=== PATIENT | male | born 1990 | race Caucasian/White ===

== ENCOUNTER 2017-05-14 14:36 | Observation (INO) | payer BC ==
[2017-05-14] MEDS ORDERED: Lactated Ringers 1,000 ML IV ONE ×2 (14:38→16:19)
[2017-05-14 15:40] LABS: CHLORIDE,CL 100 mmol/L (98-107); SODIUM,NA 136 mmol/L (136-145)
[2017-05-14] MEDS ORDERED: Morphine 10 MG/ML Syringe IVPUSH ONE (15:42)
[2017-05-14] MEDS ORDERED: Acetaminophen 325 MG Tab PO ONE (15:43)
[2017-05-14] MEDS ORDERED: Ondansetron 4 MG/2 ML SDV IVPUSH ONE (15:43)
[2017-05-14] MEDS ORDERED: Ketorolac 30 MG/ML SDV IVPUSH ONE (15:43)
--- NOTE | 2017-05-14 15:51 | EDM.PDOC ---
ED HPI GENERAL MEDICAL PROBLEM - General Chief Complaint: Respiratory Problem Stated Complaint: fever, cough Time Seen by Provider: 05/14/17 15:12 Source of Information: Reports: Patient, Family History Limitations: Reports: No Limitations - History of Present Illness INITIAL COMMENTS - FREE TEXT/NARRATIVE: Patient comes to ER accompanied by after being ill since , 2 days ago. Has had bad headache, all-over body aches, low back pain. Daily fevers up to around 102. Additional positives include sore throat, moderate non- productive cough, ear pain. First day of illness included nausea and vomiting for half of the day. That resolved. No bowel changes. Decreased PO intake since becoming sick. Has had OTC NSAIDS. No one around him ill other than one person that missed work for a few days due to not feeling well. feels fine. Denies chronic health issues other than seasonal allergies. Had multiple ear infections as a kid. Non-smoker. Decided to come to ER to be checked as he also developed chest pain today, more so on left anterior chest than right. No change in pain with PO intake/moving/ breathing. Pain is relatively steady. 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 Headache Pain Score (Numeric/FACES): 8 - Related Data Allergies Allergy/AdvReac Type Severity Reaction Status Date / Time cefixime [From Suprax] Allergy Hives Verified 05/14/17 15:37 Home Meds: Home Meds Ibuprofen [Advil] 600 mg PO Q6H PRN 05/14/17 [History] Past Medical History HEENT History: Reports: Allergic Rhinitis, Otitis Media Cardiovascular History: Reports: None Respiratory History: Reports: None Gastrointestinal History: Reports: None Genitourinary History: Reports: None Musculoskeletal History: Reports: None Neurological History: Reports: Concussion Psychiatric History: Reports: None Endocrine/Metabolic History: Reports: None Hematologic History: Reports: None Oncologic (Cancer) History: Reports: None Dermatologic History: Reports: None - Infectious Disease History Infectious Disease History: Reports: C-Difficile, Chicken Pox, Influenza - Past Surgical History HEENT Surgical History: Reports: Adenoidectomy, Oral Surgery, Tonsillectomy Cardiovascular Surgical History: Reports: None Respiratory Surgical History: Reports: None GI Surgical History: Reports: None Social & Family History - Family History Family Medical History: Noncontributory Oncologic: Reports: Prostate, Other (See Below) Other Oncologic Family History: father with prostate cancer - Tobacco Use Smoking Status *Q: Never Smoker ED ROS GENERAL - Review of Systems Review Of Systems: See Below Constitutional: Reports: Fever, Chills, Malaise, Weakness, Fatigue, Diaphoresis , Decreased Appetite HEENT: Reports: Ear Pain, Rhinitis, Throat Pain. Denies: Ear Discharge, Eye Discharge, Eye Pain, Sinus Problem, Throat Swelling, Vertigo, Vision Change Respiratory: Reports: Cough. Denies: Shortness of Breath, Wheezing, Pleuritic Chest Pain, Sputum, Hemoptysis Cardiovascular: Reports: Chest Pain. Denies: Dyspnea on Exertion, Edema, Palpitations, Syncope GI/Abdominal: Reports: Nausea, Vomiting. Denies: Abdominal Pain, Constipation, Diarrhea, Melena : Reports: Other (decreased urination frequency) Musculoskeletal: Reports: Back Pain, Muscle Pain (generalized aches). Denies: Muscle Stiffness Skin: Reports: No Symptoms Neurological: Reports: Headache. Denies: Confusion, Dizziness, Numbness, Paresthesia, Seizure, Syncope, Trouble Speaking, Gait Disturbance Psychiatric: Reports: No Symptoms Hematologic/Lymphatic: Reports: No Symptoms Immunologic: Reports: Environmental Allergy ED EXAM, GENERAL - Physical Exam Exam: See Below Exam Limited By: No Limitations General Appearance: Alert, WD/WN, No Apparent Distress, Other (appears fatigued) Eye Exam: Bilateral Eye: EOMI, PERRL Ears: Normal External Exam, Normal Canal, Hearing Grossly Normal, Normal TMs Nose: Normal Inspection. No: Nasal Swelling, Nasal Drainage Throat/Mouth: Normal Inspection, Normal Lips, Normal Teeth, Normal Gums, Normal Oropharynx, Normal Voice, No Airway Compromise Head: Atraumatic, Normocephalic Neck: Normal Inspection, Supple, Non-Tender, Full Range of Motion. No: Lymphadenopathy (L), Lymphadenopathy (R) Respiratory/Chest: No Respiratory Distress, No Accessory Muscle Use, Chest Non- Tender, Rales (very faint rales left lung posteriorly). No: Crackles, Rhonchi, Wheezing, Stridor, Accessory Muscle Use, Retractions Cardiovascular: Normal Peripheral Pulses, Regular Rate, Rhythm, No Edema, No Murmur Peripheral Pulses: 2+: Radial (L), Radial (R), Dorsalis Pedis (L), Dorsalis Pedis (R) GI/Abdominal: Normal Bowel Sounds, Soft, Non-Tender, No Distention, No Abnormal Bruit, No Mass (Male) Exam: Deferred Rectal (Males) Exam: Deferred Back Exam: Normal Inspection. No: CVA Tenderness (L), CVA Tenderness (R), Muscle Spasm, Paraspinal Tenderness, Vertebral Tenderness Extremities: Normal Range of Motion, Non-Tender, No Pedal Edema, Slow Capillary Refill. No: Tiffani's Sign Neurological: Alert, Oriented, Normal Cognition, Normal Gait, No Motor/Sensory Deficits Psychiatric: Normal Affect, Normal Mood Skin Exam: Warm, Dry, Intact, Other (patient noted to be sweating on back where he made contact with bed. ) EKG INTERPRETATION EKG Date: 05/14/17 Time: 15:27 Rhythm: NSR Rate (Beats/Min): 92 [place]: Normal P-Wave: Present QRS: Normal ST-T: Other (No acute ST changes suggesting ischemia overall, however morphology of V2 shows very slight change in beginning of T wave.) QT: Normal Comparison: NA - No Prior EKG Course - Vital Signs Last Recorded V/S: Last Vital Signs Temp 37.9 C 05/14/17 14:38 Pulse 94 05/14/17 15:21 Resp 20 05/14/17 15:21 BP 154/83 H 05/14/17 15:21 Pulse Ox 99 05/14/17 15:21 - Orders/Labs/Meds Orders: Active Orders 24 hr Category Date Time Status EKG Documentation Completion [RC] ASDIRECTED Care 05/14/17 15:23 Active Chest 2V [CR] Stat Exams 05/14/17 14:38 Taken CULTURE BLOOD [BC] Stat Lab 05/14/17 15:04 Ordered CULTURE BLOOD [BC] Stat Lab 05/14/17 15:04 Ordered CULTURE STREP A CONFIRMATION [RM] Stat Lab 05/14/17 14:26 Results STREP SCRN A RAPID W CULT CONF [RM] Stat Lab 05/14/17 14:26 Results UA W/MICROSCOPIC [URIN] Stat Lab 05/14/17 14:38 Ordered Sodium Chloride 0.9% [Saline Flush] Med 05/14/17 15:39 Active 10 ml FLUSH ASDIRECTED PRN Blood Culture x2 Reflex Set [OM.PC] Stat Oth 05/14/17 15:04 Ordered Medication Orders Acetaminophen (Tylenol Extra Strength) 500 mg PO Q6H PRN PRN Reason: Pain Lactated Ringer's (Ringers, Lactated) 1,000 mls @ 250 mls/hr IV .BOLUS ONE Stop: 05/14/17 20:18 Sodium Chloride (Normal Saline) 1,000 mls @ 150 mls/hr IV ASDIRECTED FEDE Ketorolac Tromethamine (Toradol) 30 mg IVPUSH Q8H PRN PRN Reason: Pain Stop: 05/19/17 16:22 Morphine Sulfate (Morphine) 5 mg IVPUSH Q4H PRN PRN Reason: Pain (moderate 4-6) Ondansetron HCl (Zofran) 4 mg IVPUSH Q6H PRN PRN Reason: Nausea/Vomiting Sodium Chloride (Saline Flush) 10 ml FLUSH ASDIRECTED PRN PRN Reason: Keep Vein Open Last Admin: 05/14/17 16:03 Dose: 10 ml Admin: 05/14/17 15:57 Dose: 10 ml Labs: Laboratory Tests 05/14/17 05/14/17 05/14/17 Range/Units 14:50 14:50 14:50 WBC 6.8 (4.0-10.2) K/uL RBC 5.20 (4.33-5.41) M/uL Hgb 15.2 (13.1-16.8) g/dL Hct 44.3 (39.0-49.0) % MCV 85.2 (84.0-98.0) fL MCH 29.2 (28.2-33.3) pg MCHC 34.3 (31.7-36.0) g/dL RDW 13.1 (11.2-14.1) % Plt Count 178 (150-350) K/uL Neut % (Auto) 66.8 (45.0-80.0) % Lymph % (Auto) 14.8 (10.0-50.0) % [place] % (Auto) 18.2 H (2.0-14.0) % Eos % (Auto) 0.1 (0.0-5.0) % Baso % (Auto) 0.1 (0.0-2.0) % Neut # (Auto) 4.51 (1.40-7.00) K/uL Lymph # (Auto) 1.00 (0.50-3.50) K/uL [place] # (Auto) 1.23 H (0.00-1.00) K/uL Eos # (Auto) 0.01 (0.00-0.50) K/uL Baso # (Auto) 0.01 (0.00-0.20) K/uL Sodium 136 (136-145) mmol/L Potassium 3.7 (3.5-5.1) mmol/L Chloride 100 (98-107) mmol/L Carbon Dioxide 25.3 (21.0-32.0) mmol/L BUN 9 (7-18) mg/dL Creatinine 1.02 (0.51-1.17) mg/dL Est Cr Clr Drug Dosing 127.85 mL/min Estimated GFR (MDRD) > 60 mL/min Glucose 90 (74-106) mg/dL Lactic Acid 0.6 (0.4-2.0) mmol/L Calcium 8.8 (8.5-10.1) mg/dL Total Bilirubin 0.5 (0.2-1.0) mg/dL AST 23 (15-37) U/L ALT 29 (12-78) U/L Alkaline Phosphatase 72 (46-116) IU/L Troponin I (0.000-0.056) ng/mL Total Protein 8.3 H (6.4-8.2) g/dL Albumin 4.4 (3.4-5.0) g/dL 05/14/17 Range/Units 14:50 WBC (4.0-10.2) K/uL RBC (4.33-5.41) M/uL Hgb (13.1-16.8) g/dL Hct (39.0-49.0) % MCV (84.0-98.0) fL MCH (28.2-33.3) pg MCHC (31.7-36.0) g/dL RDW (11.2-14.1) % Plt Count (150-350) K/uL Neut % (Auto) (45.0-80.0) % Lymph % (Auto) (10.0-50.0) % [place] % (Auto) (2.0-14.0) % Eos % (Auto) (0.0-5.0) % Baso % (Auto) (0.0-2.0) % Neut # (Auto) (1.40-7.00) K/uL Lymph # (Auto) (0.50-3.50) K/uL [place] # (Auto) (0.00-1.00) K/uL Eos # (Auto) (0.00-0.50) K/uL Baso # (Auto) (0.00-0.20) K/uL Sodium (136-145) mmol/L Potassium (3.5-5.1) mmol/L Chloride (98-107) mmol/L Carbon Dioxide (21.0-32.0) mmol/L BUN (7-18) mg/dL Creatinine (0.51-1.17) mg/dL Est Cr Clr Drug Dosing mL/min Estimated GFR (MDRD) mL/min Glucose (74-106) mg/dL Lactic Acid (0.4-2.0) mmol/L Calcium (8.5-10.1) mg/dL Total Bilirubin (0.2-1.0) mg/dL AST (15-37) U/L ALT (12-78) U/L Alkaline Phosphatase (46-116) IU/L Troponin I 0.000 (0.000-0.056) ng/mL Total Protein (6.4-8.2) g/dL Albumin (3.4-5.0) g/dL Meds: Medications Generic Name Dose Route Start Last Admin Trade Name Freq PRN Reason Stop Dose Admin Acetaminophen 500 mg 05/14/17 16:24 Tylenol Extra Strength PO Q6H PRN Pain Lactated Ringer's 1,000 mls @ 250 mls/hr 05/14/17 16:19 Ringers, Lactated IV 05/14/17 20:18 .BOLUS ONE Sodium Chloride 1,000 mls @ 150 mls/hr 05/14/17 20:00 Normal Saline IV ASDIRECTED FEDE Ketorolac Tromethamine 30 mg 05/14/17 16:20 Toradol IVPUSH 05/19/17 16:22 Q8H PRN Pain Morphine Sulfate 5 mg 05/14/17 16:20 Morphine IVPUSH Q4H PRN Pain (moderate 4-6) Ondansetron HCl 4 mg 05/14/17 16:20 Zofran IVPUSH Q6H PRN Nausea/Vomiting Sodium Chloride 10 ml 05/14/17 15:39 05/14/17 16:03 Saline Flush FLUSH 10 ml ASDIRECTED PRN Administration Keep Vein Open Discontinued Medications Generic Name Dose Route Start Last Admin Trade Name John PRN Reason Stop Dose Admin Acetaminophen 650 mg 05/14/17 15:43 05/14/17 15:55 Tylenol PO 05/14/17 15:44 650 mg NOW ONE Administration Lactated Ringer's 1,000 mls @ 999 mls/hr 05/14/17 14:38 05/14/17 15:00 Ringers, Lactated IV 05/14/17 15:38 999 mls/hr ONETIME ONE Administration Ketorolac Tromethamine 30 mg 05/14/17 15:43 05/14/17 15:54 Toradol IVPUSH 05/14/17 15:44 30 mg ONETIME ONE Administration Morphine Sulfate 5 mg 05/14/17 15:42 05/14/17 15:56 Morphine IVPUSH 05/14/17 15:43 5 mg ONETIME ONE Administration Ondansetron HCl 4 mg 05/14/17 15:43 05/14/17 15:55 Zofran IVPUSH 05/14/17 15:44 4 mg ONETIME ONE Administration - Radiology Interpretation Free Text/Narrative:: Chest xray did not show obvious localized infiltrate/pneumonia/pneumothorax - Re-Assessments/Exams Free Text/Narrative Re-Assessment/Exam: 05/14/17 16:07 IV fluid bolus given to help treat dehydration. Patient positive for Influenza A. Strep negative. CBC/Chem/Trop/lactic acid normal. Blood culture pending. Patient admitted observation for IV fluids and pain management. BP elevated in ER which patient says is not normal for him. He attributed it to his headache. MS and Toradol given. Suspect chest pain is related to the influenza infection. Again patient is having a good amount of discomfort from headache and generalized body/back aches. Departure - Departure Time of Disposition: 16:26 Disposition: Refer to Observation Condition: Fair Clinical Impression: Influenza A, Dehydration - Discharge Information - Problem List & Annotations (1) Influenza A SNOMED Code(s): 519267922 Code(s): J10.1 - FLU DUE TO OTH IDENT INFLUENZA VIRUS W OTH RESP MANIFEST Status: Acute Priority: High Current Visit: Yes Onset Date: 05/12/17 Annotation/Comment:: Influenza infection that was noted to start three days ago. Antiviral not indicated due to illness being present for three days and patient being otherwise healthy. Will give IV fluid support as well as try to make patient feel more comfortable pain-funez (2) Dehydration SNOMED Code(s): 45173500 Code(s): E86.0 - DEHYDRATION Status: Acute Priority: High Current Visit : Yes Onset Date: ~05/13/17 (3) Headache due to viral infection SNOMED Code(s): 085765245 Code(s): B34.9 - VIRAL INFECTION, UNSPECIFIED; R51 - HEADACHE Status: Acute Priority: High Current Visit: Yes Onset Date: 05/12/17 - Problem List Review Problem List Initiated/Reviewed/Updated: Yes - My Orders Last 24 Hours: My Active Orders 05/14/17 14:26 CULTURE STREP A CONFIRMATION [RM] Stat STREP SCRN A RAPID W CULT CONF [RM] Stat 05/14/17 14:38 Chest 2V [CR] Stat UA W/MICROSCOPIC [URIN] Stat 05/14/17 15:04 CULTURE BLOOD [BC] Stat CULTURE BLOOD [BC] Stat Blood Culture x2 Reflex Set [OM.PC] Stat 05/14/17 15:23 EKG Documentation Completion [RC] ASDIRECTED 05/14/17 15:39 Sodium Chloride 0.9% [Saline Flush] 10 ml FLUSH ASDIRECTED PRN - Assessment/Plan Admission H&P: Please use this note as an admission H&P Last 24 Hours: My Active Orders 05/14/17 14:26 CULTURE STREP A CONFIRMATION [RM] Stat STREP SCRN A RAPID W CULT CONF [RM] Stat 05/14/17 14:38 Chest 2V [CR] Stat UA W/MICROSCOPIC [URIN] Stat 05/14/17 15:04 CULTURE BLOOD [BC] Stat CULTURE BLOOD [BC] Stat Blood Culture x2 Reflex Set [OM.PC] Stat 05/14/17 15:23 EKG Documentation Completion [RC] ASDIRECTED 05/14/17 15:39 Sodium Chloride 0.9% [Saline Flush] 10 ml FLUSH ASDIRECTED PRN Assessment:: Influenza A infection with dehydration and significant discomfort secondary to headache/body aches. Plan: Admit for IV fluids and pain management. Anticipate that patient will likely go home tomorrow depending on response to treatment plan.
[2017-05-14] MEDS: Sodium Chloride 0.9% 10 ML Syringe FLUSH PRN ×3 (15:57→18:30)
[2017-05-14] MEDS ORDERED: Acetaminophen 500 MG Tab PO PRN (16:24)
[2017-05-14] MEDS ORDERED: Acetaminophen/oxyCODONE 325-5 MG Tab PO PRN (18:22)
[2017-05-14] MEDS: Morphine 10 MG/ML Syringe IVPUSH PRN (18:29)
[2017-05-14] MEDS: Sodium Chloride 0.9% 1,000 ML IV SCH (20:14)
[2017-05-15] MEDS: Morphine 10 MG/ML Syringe IVPUSH PRN (01:18)
[2017-05-15] MEDS: Sodium Chloride 0.9% 10 ML Syringe FLUSH PRN ×4 (01:18→17:21)
[2017-05-15] MEDS: Ketorolac 30 MG/ML SDV IVPUSH PRN ×2 (03:12→17:20)
[2017-05-15] MEDS: Sodium Chloride 0.9% 1,000 ML IV SCH ×3 (03:13→17:21)
[2017-05-15] MEDS: Acetaminophen/oxyCODONE 325-5 MG Tab PO PRN ×2 (05:36→11:24)
[2017-05-15] MEDS: Ondansetron 4 MG/2 ML SDV IVPUSH PRN ×2 (09:00→17:20)
--- NOTE | 2017-05-15 11:31 | PCM.PN ---
- General Info Date of Service: 05/15/17 Admission Dx/Problem (Free Text): Influenza, dehydration, headache Functional Status: Reports: Pain Controlled (Not pain-free but significant improvement with current medication regimen. 07/05) - Review of Systems General: Reports: Weakness, Fatigue, Malaise, Chills. Denies: Fever HEENT: Reports: Headaches, Sore Throat, Rhinitis Pulmonary: Reports: Cough, Sputum. Denies: Shortness of Breath, Pleuritic Chest Pain, Hemoptysis, Wheezing Cardiovascular: Denies: Palpitations, Dyspnea on Exertion, Orthopnea, PND, Edema , Lightheadedness Gastrointestinal: Reports: Nausea. Denies: Abdominal Pain, Decreased Appetite, Diarrhea, Vomiting Genitourinary: Reports: No Symptoms Musculoskeletal: Reports: Back Pain, Other (generalized aches all over body) Skin: Reports: No Symptoms Neurological: Reports: Headache. Denies: Confusion, Dizziness, Numbness, Paresthesia, Syncope, Trouble Speaking, Difficulty Walking, Change in Speech, Gait Disturbance Psychiatric: Reports: No Symptoms - Patient Data Vitals - Most Recent: Last Vital Signs Temp 37.2 C 05/15/17 11:23 Pulse 74 05/15/17 08:00 Resp 15 05/15/17 08:00 BP 150/72 H 05/15/17 08:00 Pulse Ox 100 05/15/17 08:00 Weight - Most Recent: 88.768 kg I&O - Last 24 Hours: Intake & Output 05/14/17 05/15/17 05/15/17 22:59 06:59 14:59 Intake Total 985 2875 1360 Output Total 1600 1000 Balance 985 1275 360 Lab Results Last 24 Hours: Laboratory Results - last 24 hr 05/14/17 Range/Units 19:30 Specimen Type Urinvoid Urine Color Yellow Urine Appearance Clear Urine pH 6.0 (5.0-9.0) Ur Specific [place] 1.015 (1.005-1.030) Urine Protein Negative (NEGATIVE) mg/dL Urine Glucose (UA) Negative (NEGATIVE) mg/dL Urine Ketones 15 H (NEGATIVE) mg/dL Urine Occult Blood Negative (NEGATIVE) Urine Nitrite Negative (NEGATIVE) Urine Bilirubin Negative (NEGATIVE) Urine Urobilinogen 0.2 (0.2-1.0) E.U./dL Ur Leukocyte Esterase Negative (NEGATIVE) Urine RBC Not seen /HPF Urine WBC 0-5 /HPF Ur Epithelial Cells Rare /LPF Urine Bacteria Not seen (NONE TO FEW) /HPF Urine Mucus Few H (NEGATIVE) /LPF Med Orders - Current: Current Medications Acetaminophen (Tylenol Extra Strength) 500 mg PO Q6H PRN PRN Reason: Pain Last Admin: 05/15/17 01:17 Dose: 500 mg Sodium Chloride (Normal Saline) 1,000 mls @ 150 mls/hr IV ASDIRECTED FEDE Last Admin: 05/15/17 09:03 Dose: 150 mls/hr Ketorolac Tromethamine (Toradol) 30 mg IVPUSH Q8H PRN PRN Reason: Pain Stop: 05/19/17 16:22 Last Admin: 05/15/17 03:12 Dose: 30 mg Morphine Sulfate (Morphine) 5 mg IVPUSH Q4H PRN PRN Reason: Pain (moderate 4-6) Last Admin: 05/15/17 01:18 Dose: 5 mg Ondansetron HCl (Zofran) 4 mg IVPUSH Q6H PRN PRN Reason: Nausea/Vomiting Last Admin: 05/15/17 09:00 Dose: 4 mg Oxycodone/Acetaminophen (Percocet 325-5 Mg) 1 tab PO Q6H PRN PRN Reason: Pain (moderate 4-6) Last Admin: 05/14/17 20:12 Dose: 1 tab Oxycodone/Acetaminophen (Percocet 325-5 Mg) 2 tab PO Q6H PRN PRN Reason: Pain (severe 7-10) Last Admin: 05/15/17 11:24 Dose: 2 tab Sodium Chloride (Saline Flush) 10 ml FLUSH ASDIRECTED PRN PRN Reason: Keep Vein Open Last Admin: 05/15/17 09:04 Dose: 10 ml Discontinued Medications Acetaminophen (Tylenol) 650 mg PO NOW ONE Stop: 05/14/17 15:44 Last Admin: 05/14/17 15:55 Dose: 650 mg Lactated Ringer's (Ringers, Lactated) 1,000 mls @ 999 mls/hr IV ONETIME ONE Stop: 05/14/17 15:38 Last Admin: 05/14/17 15:00 Dose: 999 mls/hr Lactated Ringer's (Ringers, Lactated) 1,000 mls @ 250 mls/hr IV .BOLUS ONE Stop: 05/14/17 20:18 Last Admin: 05/14/17 16:30 Dose: 250 mls/hr Ketorolac Tromethamine (Toradol) 30 mg IVPUSH ONETIME ONE Stop: 05/14/17 15:44 Last Admin: 05/14/17 15:54 Dose: 30 mg Morphine Sulfate (Morphine) 5 mg IVPUSH ONETIME ONE Stop: 05/14/17 15:43 Last Admin: 05/14/17 15:56 Dose: 5 mg Ondansetron HCl (Zofran) 4 mg IVPUSH ONETIME ONE Stop: 05/14/17 15:44 Last Admin: 05/14/17 15:55 Dose: 4 mg - Exam General: Alert, Oriented, Cooperative, Other (appears very fatigued) HEENT: Pupils Equal, Pupils Reactive, EOMI, Mucous Membr. Moist/[place] Neck: Supple Lungs: Clear to Auscultation, Normal Respiratory Effort Cardiovascular: Regular Rate, Regular Rhythm GI/Abdominal Exam: Normal Bowel Sounds, Soft, Non-Tender, No Distention (Male) Exam: Deferred Back Exam: Normal Inspection Extremities: Normal Inspection, Normal Range of Motion, No Pedal Edema, Normal Capillary Refill Peripheral Pulses: 2+: Radial (L), Radial (R) Skin: Warm, Dry, Intact Neurological: No New Focal Deficit Psy/Mental Status: Alert, Normal Affect, Normal Mood - Problem List & Annotations (1) Influenza A SNOMED Code(s): 207786212 Code(s): J10.1 - FLU DUE TO OTH IDENT INFLUENZA VIRUS W OTH RESP MANIFEST Status: Acute Priority: High Current Visit: Yes Onset Date: 05/12/17 Annotation/Comment:: Continue supportive measures as well as IV fluids/pain management (2) Dehydration SNOMED Code(s): 24066327 Code(s): E86.0 - DEHYDRATION Status: Acute Priority: High Current Visit : Yes Onset Date: ~05/13/17 (3) Headache due to viral infection SNOMED Code(s): 760425519 Code(s): B34.9 - VIRAL INFECTION, UNSPECIFIED; R51 - HEADACHE Status: Acute Priority: High Current Visit: Yes Onset Date: 05/12/17 Annotation/ Comment:: Patient aware that we cannot likely get him completely pain-free as this is a virally induced headache. Has had good overall improvement of pain with best pain reduction from Percocet. (4) Hypertension SNOMED Code(s): 09612852 Code(s): I10 - ESSENTIAL (PRIMARY) HYPERTENSION Status: Acute Priority: Low Current Visit: Yes Qualifiers: Hypertension type: unspecified Qualified Code(s): I10 - Essential (primary ) hypertension Annotation/Comment:: Patient denies having issues with elevated BP when feeling well. Appears to have elevated BP that is associated with pain/discomfort. Readings improve when pain score is improved. - Problem List Review Problem List Initiated/Reviewed/Updated: Yes - My Orders Last 24 Hours: My Active Orders 05/14/17 16:16 Patient Status [ADT] Routine Ambulate [RC] ASDIRECTED Height and Weight [RC] .PRN May Shower [RC] ASDIRECTED Up ad [place] [RC] ASDIRECTED Vital Signs [RC] Q4HR DVT/VTE Prophylaxis Reflex [OM.PC] Routine Resuscitation Status Routine 05/14/17 16:18 Intake and Output [RC] QSHIFT Oxygen Therapy [RC] PRN Pulse Oximetry [RC] PRN 05/14/17 16:19 Antiembolic Devices [RC] 08,20 VTE/DVT Education [RC] PER UNIT ROUTINE 05/14/17 16:20 Ketorolac [Toradol] 30 mg IVPUSH Q8H PRN Morphine 5 mg IVPUSH Q4H PRN Ondansetron [Zofran] 4 mg IVPUSH Q6H PRN 05/14/17 16:24 Acetaminophen [Tylenol Extra Strength] 500 mg PO Q6H PRN 05/14/17 16:30 Isolation [COMM] Routine 05/14/17 18:22 Acetaminophen/oxyCODONE [Percocet 325-5 MG] 1 tab PO Q6H PRN 05/14/17 18:23 Acetaminophen/oxyCODONE [Percocet 325-5 MG] 2 tab PO Q6H PRN 05/14/17 20:00 Sodium Chloride 0.9% [Normal Saline] 1,000 ml IV ASDIRECTED 05/14/17 Dinner Regular Diet [DIET] - Assessment Assessment:: Influenza A infection with severe headache and dehydration. - Plan Plan:: Will continue current plan. Goal is to be able to discharge patient home tomorrow and have him continue on PRN oral medication for continued nausea and influenza-related discomfort.
[2017-05-15] MEDS ORDERED: Promethazine 25 MG/ML SDV IM PRN (18:19)
[2017-05-16] MEDS: Ketorolac 30 MG/ML SDV IVPUSH PRN (00:35)
[2017-05-16] MEDS: Ondansetron 4 MG/2 ML SDV IVPUSH PRN (00:35)
[2017-05-16] MEDS: Sodium Chloride 0.9% 1,000 ML IV SCH (00:38)
--- NOTE | 2017-05-16 09:20 | PCM.DCSUM1 ---
Discharge Summary - Hospital Course Brief History: Patient admitted for treatment of Influenza A - Discharge Data Discharge Date: 05/16/17 Discharge Disposition: Home, Self-Care 01 Condition: Good - Discharge Diagnosis/Problem(s) (1) Influenza A SNOMED Code(s): 414659609 ICD Code: J10.1 - FLU DUE TO OTH IDENT INFLUENZA VIRUS W OTH RESP MANIFEST Status: Acute Priority: High Current Visit: Yes Onset Date: 05/12/17 Problem Details: Improving. Continues to have baseline headache and intermittent nausea. Improving appetite (2) Dehydration SNOMED Code(s): 13772085 ICD Code: E86.0 - DEHYDRATION Status: Acute Priority: High Current Visit: Yes Onset Date: ~05/13/17 (3) Headache due to viral infection SNOMED Code(s): 094960912 ICD Code: B34.9 - VIRAL INFECTION, UNSPECIFIED; R51 - HEADACHE Status: Acute Priority: High Current Visit: Yes Onset Date: 05/12/17 Problem Details: Improving (4) Hypertension SNOMED Code(s): 29833583 ICD Code: I10 - ESSENTIAL (PRIMARY) HYPERTENSION Status: Acute Priority: Low Current Visit: Yes Problem Details: Patient denies having issues with elevated BP when feeling well. Appears to have elevated BP that is associated with pain/discomfort. Readings improve when pain score is improved. Qualifiers: Hypertension type: unspecified Qualified Code(s): I10 - Essential (primary ) hypertension - Patient Summary/Data Complications: None Hospital Course: Patient received IV fluids as well as pain management for generalized aches and headache associated with flu. Anti-nausea meds to treat nausea and emesis. - Patient Instructions Diet: Regular Diet as Tolerated Driving: Do Not Drive (if taking [place]) Showering/Bathing: May Shower Notify Provider of: Fever, Increased Pain, Nausea and/or Vomiting - Discharge Plan Prescriptions/Med Rec: Acetaminophen/oxyCODONE [Percocet 325-5 MG] 1 each PO ASDIRECTED PRN #15 tab PRN Reason: Pain Ondansetron [Zofran ODT] 4 mg PO Q6H PRN #10 tab.dis PRN Reason: Nausea Home Medications: Home Meds Ibuprofen [Advil] 600 mg PO Q6H PRN 05/14/17 [History] Acetaminophen/oxyCODONE [Percocet 325-5 MG] 1 each PO ASDIRECTED PRN #15 tab [Rx] Ondansetron [Zofran ODT] 4 mg PO Q6H PRN #10 tab.dis 05/16/17 [Rx] Patient Handouts: Ketorolac injection, Ondansetron injection, Influenza, Adult , Droplet Precautions, [id number], Morphine injection solution Forms: ED Department Discharge Referrals: Stella López [employer] [Primary Care Provider] - - Discharge Summary/Plan Comment DC Time >30 min.: No Discharge Summary/Plan Comment: Patient to go home. Advance activity as tolerated. Advance diet as tolerated. Follow up as needed. - General Info Date of Service: 05/16/17 Admission Dx/Problem (Free Text: Influenza, dehydration, headache Functional Status: Reports: Pain Controlled (improved but still present), Tolerating Diet, Ambulating, Urinating. Denies: New Symptoms Numeric/FACES Score: 3 - Review of Systems General: Reports: Fatigue (improving), Appetite (improving). Denies: Fever, Chills, Night Sweats HEENT: Reports: Headaches (improving), Sore Throat (improving). Denies: Ear Pain, Eye Pain, Rhinitis, Visual Changes Pulmonary: Reports: Cough (improving). Denies: Shortness of Breath, Pleuritic Chest Pain, Sputum, Hemoptysis, Wheezing Cardiovascular: Reports: No Symptoms Gastrointestinal: Reports: Nausea (intermittent, improving). Denies: Abdominal Pain, Diarrhea, Difficulty Swallowing, Vomiting Genitourinary: Reports: No Symptoms Musculoskeletal: Reports: Other (generalized muscle aches, improving) Skin: Reports: No Symptoms Neurological: Reports: Headache. Denies: Confusion, Dizziness, Numbness, Paresthesia, Trouble Speaking, Difficulty Walking, Weakness, Change in Speech, Gait Disturbance Psychiatric: Reports: No Symptoms - Patient Data Vitals - Most Recent: Last Vital Signs Temp 36.7 C 05/16/17 08:00 Pulse 84 05/16/17 08:00 Resp 15 05/16/17 08:00 BP 145/70 H 05/16/17 08:00 Pulse Ox 98 05/16/17 08:00 Weight - Most Recent: 88.768 kg I&O - Last 24 hours: Intake & Output 05/15/17 05/16/17 05/16/17 22:59 06:59 14:59 Intake Total 1646 2318 200 Output Total 1950 1000 Balance -304 1318 200 Lab Results - Last 24 hrs: Laboratory Results - last 24 hr 05/14/17 Range/Units 19:30 Specimen Type Urinvoid Urine Color Yellow Urine Appearance Clear Urine pH 6.0 (5.0-9.0) Ur Specific [place] 1.015 (1.005-1.030) Urine Protein Negative (NEGATIVE) mg/dL Urine Glucose (UA) Negative (NEGATIVE) mg/dL Urine Ketones 15 H (NEGATIVE) mg/dL Urine Occult Blood Negative (NEGATIVE) Urine Nitrite Negative (NEGATIVE) Urine Bilirubin Negative (NEGATIVE) Urine Urobilinogen 0.2 (0.2-1.0) E.U./dL Ur Leukocyte Esterase Negative (NEGATIVE) Urine RBC Not seen /HPF Urine WBC 0-5 /HPF Ur Epithelial Cells Rare /LPF Urine Bacteria Not seen (NONE TO FEW) /HPF Urine Mucus Few H (NEGATIVE) /LPF Med Orders - Current: Current Medications Acetaminophen (Tylenol Extra Strength) 500 mg PO Q6H PRN PRN Reason: Pain Last Admin: 05/15/17 01:17 Dose: 500 mg Sodium Chloride (Normal Saline) 1,000 mls @ 125 mls/hr IV ASDIRECTED [facility] Last Admin: 05/16/17 00:38 Dose: 125 mls/hr Ketorolac Tromethamine (Toradol) 30 mg IVPUSH Q8H PRN PRN Reason: Pain Stop: 05/19/17 16:22 Last Admin: 05/16/17 00:35 Dose: 30 mg Morphine Sulfate (Morphine) 5 mg IVPUSH Q4H PRN PRN Reason: Pain (moderate 4-6) Last Admin: 05/15/17 01:18 Dose: 5 mg Ondansetron HCl (Zofran) 4 mg IVPUSH Q6H PRN PRN Reason: Nausea/Vomiting Last Admin: 05/16/17 00:35 Dose: 4 mg Oxycodone/Acetaminophen (Percocet 325-5 Mg) 1 tab PO Q6H PRN PRN Reason: Pain (moderate 4-6) Last Admin: 05/14/17 20:12 Dose: 1 tab Oxycodone/Acetaminophen (Percocet 325-5 Mg) 2 tab PO Q6H PRN PRN Reason: Pain (severe 7-10) Last Admin: 05/15/17 11:24 Dose: 2 tab Promethazine HCl (Phenergan) 25 mg IM Q6H PRN PRN Reason: Nausea/Vomiting Last Admin: 05/15/17 18:34 Dose: 25 mg Sodium Chloride (Saline Flush) 10 ml FLUSH ASDIRECTED PRN PRN Reason: Keep Vein Open Last Admin: 05/15/17 17:21 Dose: 10 ml Discontinued Medications Acetaminophen (Tylenol) 650 mg PO NOW ONE Stop: 05/14/17 15:44 Last Admin: 05/14/17 15:55 Dose: 650 mg Lactated Ringer's (Ringers, Lactated) 1,000 mls @ 999 mls/hr IV ONETIME ONE Stop: 05/14/17 15:38 Last Admin: 05/14/17 15:00 Dose: 999 mls/hr Lactated Ringer's (Ringers, Lactated) 1,000 mls @ 250 mls/hr IV .BOLUS ONE Stop: 05/14/17 20:18 Last Admin: 05/14/17 16:30 Dose: 250 mls/hr Ketorolac Tromethamine (Toradol) 30 mg IVPUSH ONETIME ONE Stop: 05/14/17 15:44 Last Admin: 05/14/17 15:54 Dose: 30 mg Morphine Sulfate (Morphine) 5 mg IVPUSH ONETIME ONE Stop: 05/14/17 15:43 Last Admin: 05/14/17 15:56 Dose: 5 mg Ondansetron HCl (Zofran) 4 mg IVPUSH ONETIME ONE Stop: 05/14/17 15:44 Last Admin: 05/14/17 15:55 Dose: 4 mg - Exam General: Reports: Alert, Oriented, Cooperative, No Acute Distress HEENT: Reports: Pupils Equal, Pupils Reactive, EOMI, Mucous Membr. Moist/[place] Neck: Reports: Supple Lungs: Reports: Clear to Auscultation, Normal Respiratory Effort Cardiovascular: Reports: Regular Rate, Regular Rhythm GI/Abdominal Exam: Normal Bowel Sounds, Soft, Non-Tender, No Distention, No Abnormal Bruit (Male) Exam: Deferred Rectal (Males) Exam: Deferred Back Exam: Reports: Normal Inspection, Full Range of Motion. Denies: CVA Tenderness (L), CVA Tenderness (R), Muscle Spasm, Paraspinal Tenderness, Vertebral Tenderness Extremities: Normal Inspection, Normal Range of Motion, Non-Tender, No Pedal Edema, Normal Capillary Refill Skin: Reports: Warm, Dry, Intact Neurological: Reports: No New Focal Deficit Psy/Mental Status: Reports: Alert, Normal Affect, Normal Mood *Q Meaningful Use (DIS) - VTE *Q VTE Criteria *Q: - Stroke *Q Stroke Criteria *Q: - AMI *Q AMI Criteria *Q:
== END 2017-05-16 10:20 | disposition home or self-care (01) ==
LOC: LL.ED 14:36 → LL.MS 15:45
PROVIDERS: ADMIT Emergency Medicine; ATTEND Emergency Medicine
DX: J10.1 Influenza due to other identified influenza virus with other respiratory manifestations (principal); E86.0 Dehydration; B34.9 Viral infection, unspecified; I10 Essential (primary) hypertension; J30.9 Allergic rhinitis, unspecified; Z88.1 Allergy status to other antibiotic agents; Z90.89 Acquired absence of other organs
CPT/HCPCS: 36415; 71046; 80053; 81001; 83605; 84484; 85025; 87040; 87081; 87430; 87804; 93005; 96361; 96372; 96374; 96375; 96376; 99285; A9270; G0378; J1885; J2270; J2405; J2550; J7030; J7050; J7120

== ENCOUNTER 2018-04-14 20:34 | Observation (INO) | payer BC ==
--- NOTE | 2018-04-14 20:57 | EDM.PDOC ---
ED HPI GENERAL MEDICAL PROBLEM - General Chief Complaint: Fever Stated Complaint: fever,chills,body aches Time Seen by Provider: 04/14/18 20:40 Source of Information: Reports: Patient, Family (, parents), Old Records ( [facility] chart/EMR) History Limitations: Reports: No Limitations - History of Present Illness INITIAL COMMENTS - FREE TEXT/NARRATIVE: The patient was brought to the emergency room via private automobile by his for evaluation of progressive fever and chills and generalized 6/10 arthralgias with symptoms starting at about 16:00 hours this afternoon. 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 Note that the patient did have some viral GE type symptoms about 3 days ago, including some nausea and 3 episodes of emesis at that time with subsequent 3 loose stools on the following day. He felt perfectly fine yesterday and earlier this morning with fever of 105.5 degrees shortly prior to arrival. He has not taken any medications for his symptoms to this point. The patient did receive his influenza booster this season. He did have some nonspecific brief dizziness with possible pleuritic type symptoms prior to arrival, however not currently. The patient denies any other chest pain/pressure, heart flutter, orthostasis, orthopnea, diaphoresis, recent decreased exercise tolerance, or any other anginal-type symptoms although some nonspecific paresthesias. His previous viral GE type symptoms have also resolved as above. No recent history of abdominal pain, heartburn, hematemesis, gross hematochezia, or any food intolerance, including fatty foods, etc.. He denies any foul-smelling urine, colic, or other UTI symptoms. The patient also denies any recent fever, sore throat, cough, wheezing, dyspnea, etc.. No history of recent headaches, diplopia , change in mental status, or other change in neurological status, however occasional nonspecific bilateral "black spots." Onset: Today, Gradual Onset Date: 04/14/18 Onset Time: 16:00 Duration: Constant, Getting Worse Location: Reports: Chest (As above), Generalized (As above). Denies: Head, Face , Neck, Abdomen, Back, Pelvis, Upper Extremity, Left, Upper Extremity, Right, Lower Extremity, Left, Lower Extremity, Right, Radiates to Quality: Reports: Ache, Same as Previous Episode Severity: Moderate Improves with: Reports: None Worsens with: Reports: None Context: Reports: Other (As above). Denies: Sick Contact, Trauma Associated Symptoms: Reports: Chest Pain, Fever/Chills. 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 [No Known Home Meds] 04/14/18 [History] Past Medical History HEENT History: Reports: Allergic Rhinitis, Otitis Media, Other (See Below). Denies: Cataract, Glaucoma, Hard of Hearing, Impaired Vision, Macular Degeneration, Retinal Detachment Other HEENT History: Possible nasal fracture as below. Recurrent otitis medias a child with no PE tubes required. Cardiovascular History: Reports: None, Other (See Below). Denies: Afib, Aneurysm, Arrhythmia, Blood Clots/VTE/DVT, Heart Murmur, High Cholesterol, Hypertension, Syncope Other Cardiovascular History: Elevated blood pressure with illnesses but no history of hypertension. He does not know his cholesterol status. Respiratory History: Reports: Intubation, Previous, Other (See Below). Denies: Asthma, Bronchitis, Recurrent, COPD, Intubation, Difficult, Pneumonia, Recurrent , Pneumothorax, TB Other Respiratory History: Intubation for tonsillectomy as below. Gastrointestinal History: Reports: None. Denies: Celiac Disease, Cholelithiasis , Chronic Constipation, Chronic Diarrhea, Gastritis, GERD, GI Bleed, Hepatitis, Inflammatory Bowel Disease, Irritable Bowel Syndrome, Jaundice, Pancreatitis, PUD Genitourinary History: Reports: None. Denies: Acute Renal Failure, BPH, Chronic Renal Insuffiency, Renal Calculus, Retention, Urinary, STD, Urinary Incontinence, UTI, Recurrent Musculoskeletal History: Reports: Arthritis, Back Pain, Chronic, Fracture, Osteoarthritis, Other (See Below). Denies: Gout, Neck Pain, Chronic, RA, SLE Other Musculoskeletal History: Possible nasal fracture at age 7. Right Distal tibial fracture on 07/19/04. Neurological History: Reports: Concussion, Head Trauma, Other (See Below). Denies: Cerebral Aneurysms, CVA, Headaches, Chronic, Migraines, MS, Parkinson's , Seizure, TIA, Vertigo Other Neuro History: Head concussion at about age 12. Psychiatric History: Reports: None. Denies: Abuse, Victim of, ADD, ADHD, Addiction, Anxiety, Depression, Psych Hospitalization(s), PTSD, Suicide Attempt , Suicidal Ideation Endocrine/Metabolic History: Reports: None. Denies: Diabetes, Type I, Diabetes , Type II, Diabetes Mellitus, Type 3c, Hypothyroidism, IDDM Hematologic History: Reports: None. Denies: Anemia, Blood Transfusion(s), Iron Deficiency Immunologic History: Reports: None. Denies: AIDS, HIV, SLE Oncologic (Cancer) History: Reports: None. Denies: Basal Cell Carcinoma, Hodgkin's Lymphoma, Leukemia, Lymphoma, Malignant Melanoma, Non-Hodgkin's Lymphoma, Squamous Cell Carcinoma Dermatologic History: Reports: None. Denies: Eczema, Psoriasis - Infectious Disease History Infectious Disease History: Reports: C-Difficile (Infection at age 23.), Chicken Pox, Influenza (Influenza a in April 2017), Other (See Below) (Fifth' s disease). Denies: Measles, Meningitis, Mononucleosis, MRSA, Mumps, Pertussis (Whooping Cough), Rheumatic Fever, RSV, Rubella, Scarlet Fever, Shingles, VRE - Past Surgical History Head Surgeries/Procedures: Reports: None HEENT Surgical History: Reports: Adenoidectomy, Oral Surgery, Tonsillectomy, Other (See Below). Denies: Cataract Surgery, Eye Surgery, Laser Surgery, LASIK , Myringotomy w Tube(s), Naso-Sinus Surgery Other HEENT Surgeries/Procedures: Tonsillectomy and adenoidectomy on 10/22/96. S[place] teeth extraction 4 at age 16. Cardiovascular Surgical History: Reports: None. Denies: Varicose Respiratory Surgical History: Reports: None. Denies: Thoracentesis GI Surgical History: Reports: None. Denies: Appendectomy, Cholecystectomy, Colonoscopy, EGD, Hernia, Abdominal, Hernia, Inguinal, Hernia Repair/Other Male Surgical History: Reports: Circumcision, Other (See Below). Denies: Vasectomy Other Male Surgeries/Procedures: Circumcision as an . Endocrine Surgical History: Reports: None Neurological Surgical History: Reports: None. Denies: C-Spine, Discectomy, Laminectomy, Lumbar Spine, Sacral Spine, Spinal Fusion, Thoracic Spine, Vertebroplasty Musculoskeletal Surgical History: Reports: None. Denies: Arthroscopic Procedure , Carpal Tunnel, Ganglion Cyst, Joint Replacement, ORIF, Shoulder Surgery Oncologic Surgical History: Reports: None Dermatological Surgical History: Reports: None - Past Imaging History Past Imaging History: Reports: CAT Scan ( CT scan of the right arm on 09/14/13.) Social & Family History - Family History HEENT: Reports: Macular Degeneration, Other (See Below). Denies: Cataract, Glaucoma, Retinal Detachment Other HEENT Family History: Macular degeneration in paternal grandmother. Cardiac: Reports: Aneurysm, CAD, Heart Failure, Heart Murmur, High Cholesterol, Hypertension, MA, Stent, Other (See Below). Denies: Afib, Arrhythmia, Blood Clots/VTE/DVT, PVD/COD, Syncope Other Cardiac Family History: Paternal uncle with coronary artery disease and PTCA/stent placement at age 55. Paternal grandmother with valvular disease, coronary artery disease, MA, and fatal CHF at age 90. Mother with PSVT. Paternal and maternal grandparents and father with hypertension and hyperlipidemia. Paternal aunt with cerebral aneurysm as below. Respiratory: Reports: Asthma, Pneumothorax, Sleep Apnea, Other (See Below). Denies: COPD, PE Other Respiratory Family Hisory: Infant son with congenital pneumothorax. Maternal grandmother with asthma. Father with sleep apnea. GI: Reports: Bowel Obstruction, Other (See Below). Denies: Celiac Disease, Cholelithiasis, Colon Polyps, GERD, GI bleed, Inflammatory Bowel Disease, Irritable Bowel Syndrome, PUD Other GI Family History: Maternal grandfather with recurrent bowel obstructions of unknown etiology. : Denies: Renal Calculus, Renal Disease/Insufficiency OBGYN: Reports: None. Denies: Endometriosis, Recurrent Spontaneous Musculoskeletal: Reports: Arthritis, Gout, Other (See Below). Denies: RA, SLE Other Musculoskeletal Family History: Maternal grandfather and maternal uncle with gout. Neurological: Reports: Alzheimers Disease, Cerebral Aneurysms, CVA, Dementia, Parkinson's, Other (See Below). Denies: Migraines, MS, Seizure, TIA Other Neurological Family History: Maternal grandfather and paternal grandmother with OBS. Maternal uncle with Parkinson's disease. Paternal aunt with hemorrhagic CVA secondary to a cerebral aneurysm age 56. Paternal grandmother with CVA. Psychiatric: Denies: Abuse, Victim of, ADD, ADHD, Anxiety, Depression, Psych Hospitalization(s), PTSD, Suicide Attempt Endocrine/Metabolic: Reports: Diabetes, type II, Hypothyroidism, IDDM, Other ( See Below). Denies: Diabetes, Gestational, Diabetes, Type I, Diabetes Mellitus , Type 3c Other Endocrine/Metabolic Family History: Paternal grandmother with IDDM and hypothyroidism. Hematologic: Reports: None. Denies: Anemia Immunologic: Reports: None. Denies: AIDS, HIV, SLE Dermatologic: Reports: Psoriasis, Other (See Below). Denies: Eczema Other Dermatologic Family History: Maternal grandfather with psoriasis. Oncologic: Reports: Breast, Colon, Metastatic, Prostate, Other (See Below). Denies: Hodgkin's Lymphoma, Leukemia, Lymphoma, Non-Hodgkin's Lymphoma, Skin Other Oncologic Family History: Father with prostate cancer in his 50s. BRCA gene in family with paternal aunt having breast cancer in her 40s. Paternal grandfather with metastatic prostate cancer fatal at 67. Paternal great- grandfather with fatal colon cancer at age 70. - Tobacco Use Smoking Status *Q: Never Smoker Tobacco Use Within Last Twelve Months: No Used Tobacco, but Quit: No Smoking Cessation Information Provided To Patient: No Second Hand Smoke Exposure: No Second Hand Smoke Education Provided: No - Caffeine Use Caffeine Use: Reports: Coffee (One cup per day), Soda (1 soda per day). Denies : Energy Drinks, Tea - Alcohol Use Alcohol Use History: Yes Days Per Week of Alcohol Use: 4 Number of Drinks Per Day: 1 Number of Drinks Per Day Comment: Usually beer. No previous DWIs, problems with alcohol abuse, etc.. Total Drinks Per Week: 4 Alcohol Use in Last Twelve Months: Yes - Recreational Drug Use Recreational Drug Use: No Drug Use in Last 12 Months: No Recreational Drug Type: Denies: Amphetamines (Speed), Cocaine, Heroin, Inhalants (Glues, Solvents, Aerosols), LSD (Acid), Marijuana/Hashish, Methamphetamine, Methaqualone, Oxycodone - Sexual History Sexual History: Reports: Sexually Active, Single Partner - Living Situation & Occupation Living situation: Reports: (2016. 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 ED EXAM, GI/ABD - Physical Exam Exam: See Below Exam Limited By: No Limitations General Appearance: Alert, WD/WN, No Apparent Distress Eyes: Bilateral: Normal Appearance (No nystagmus), EOMI (PERRLA) Ears: Normal External Exam, Normal Canal, Hearing Grossly Normal, Normal TMs Nose: Normal Mucosa, No Blood, Clear Rhinorrhea (Mild bilateral) Throat/Mouth: Normal Inspection, Normal Lips, Normal Teeth, Normal Gums, Normal Oropharynx, Normal Voice, No Airway Compromise, Other (Tonsils absent). No: Dysphagia, Perioral Cyanosis Head: Atraumatic, Normocephalic. No: Facial Swelling, Facial Tenderness, Sinus Tenderness Neck: Normal Inspection, Supple, Non-Tender, Full Range of Motion. No: Carotid Bruit, Lymphadenopathy (L), Lymphadenopathy (R), Thyromegaly Respiratory/Chest: No Respiratory Distress, Lungs Clear, Normal Breath Sounds, No Accessory Muscle Use, Chest Non-Tender. No: Pleural Rub, Retractions Cardiovascular: Normal Peripheral Pulses, No Edema, No Gallop, No JVD, No Murmur , No Rub, Tachycardia (Regular rhythm). No: Gallop/S3, Gallop/S4, Friction Rub GI/Abdominal Exam: Normal Bowel Sounds, Soft, Non-Tender, No Organomegaly, No Distention, No Abnormal Bruit, No Mass, Pelvis Stable. No: Guarding (Male) Exam: Deferred Rectal (Males) Exam: Deferred Back Exam: Normal Inspection, Full Range of Motion. No: CVA Tenderness (L), CVA Tenderness (R), Muscle Spasm Extremities: Normal Inspection, Normal Range of Motion, Non-Tender, No Pedal Edema, Normal Capillary Refill. No: Tiffani's Sign Neurological: Alert, Oriented, CN II-XII Intact, Normal Cognition, Normal Gait, Normal Reflexes (Negative Babinski's. Negative meningeal signs.), No Motor/ Sensory Deficits Psychiatric: Normal Affect, Normal Mood Skin Exam: Warm, Dry, Intact, Normal Color, No Rash. No: Diaphoretic, Wound/ Incision Lymphatic: No Adenopathy Course - Vital Signs Last Recorded V/S: Last Vital Signs Temp 38.4 C H 04/14/18 22:05 Pulse 120 H 04/14/18 20:45 Resp 19 04/14/18 22:05 BP 146/70 H 04/14/18 22:05 Pulse Ox 98 04/14/18 22:05 - Orders/Labs/Meds Orders: Active Orders 24 hr Category Date Time Status Cardiac Monitoring [RC] CONTINUOUS Care 04/14/18 20:58 Active Communication Order [RC] ROUTINE Care 04/14/18 20:58 Active Oxygen Therapy, ED [RC] PRN Care 04/14/18 20:58 Active Peripheral IV Care [RC] . DIRECTED Care 04/14/18 20:58 Active Pulse Oximetry [RC] CONTINUOUS Care 04/14/18 20:58 Active Up With Assistance [RC] ASDIRECTED Care 04/14/18 20:58 Active Nothing Per Oral Diet [DIET] Diet 04/14/18 Breakfast Active Abdomen Series w Chest 1V [CR] Stat Exams 04/14/18 21:01 Ordered CULTURE BLOOD [BC] Stat Lab 04/14/18 20:58 Ordered CULTURE BLOOD [BC] Stat Lab 04/14/18 20:58 Ordered CULTURE SPUTUM + SMEAR [RM] Urgent Lab 04/14/18 20:58 Ordered CULTURE STREP A CONFIRMATION [RM] Stat Lab 04/14/18 20:50 Results CULTURE URINE [RM] Routine Lab 04/14/18 20:58 Ordered STREP SCRN A RAPID W CULT CONF [RM] Stat Lab 04/14/18 20:58 Ordered UA W/MICROSCOPIC [URIN] Stat Lab 04/14/18 20:58 Ordered Levofloxacin/Dextrose 5%-Water [Levaquin in D5W 500 MG/ Med 04/14/18 22:03 Ordered 100 ML] 500 mg Premix Bag 1 bag IV ONETIME Sodium Chloride 0.9% [Saline Flush] Med 04/14/18 20:58 Active 10 ml FLUSH ASDIRECTED PRN Blood Culture x2 Reflex Set [OM.PC] Stat Oth 04/14/18 20:58 Ordered Obtain Past Medical Record [OM.PC] Stat Oth 04/14/18 20:58 Active Peripheral IV Insertion Adult [OM.PC] Stat Oth 04/14/18 20:58 Ordered Resuscitation Status Routine Resus Stat 04/14/18 20:58 Ordered Medication Orders Levofloxacin/Dextrose 500 mg/ (Premix) 100 mls @ 100 mls/hr IV ONETIME ONE Stop: 04/14/18 23:02 Last Admin: 04/14/18 22:10 Dose: 100 mls/hr Sodium Chloride (Saline Flush) 10 ml FLUSH ASDIRECTED PRN PRN Reason: Keep Vein Open Last Admin: 04/14/18 22:11 Dose: 10 ml Labs: Laboratory Tests 04/14/18 04/14/18 04/14/18 Range/Units 20:58 20:58 20:58 WBC 12.0 H (4.0-10.2) K/uL RBC 5.10 (4.33-5.41) M/uL Hgb 15.0 (13.1-16.8) g/dL Hct 42.7 (39.0-49.0) % MCV 83.7 L (84.0-98.0) fL MCH 29.4 (28.2-33.3) pg MCHC 35.1 (31.7-36.0) g/dL RDW 12.9 (11.2-14.1) % Plt Count 212 (150-350) K/uL Neut % (Auto) 85.9 H (45.0-80.0) % Lymph % (Auto) 5.7 L (10.0-50.0) % [place] % (Auto) 8.0 (2.0-14.0) % Eos % (Auto) 0.2 (0.0-5.0) % Baso % (Auto) 0.2 (0.0-2.0) % Neut # (Auto) 10.32 H (1.40-7.00) K/uL Lymph # (Auto) 0.68 (0.50-3.50) K/uL [place] # (Auto) 0.96 (0.00-1.00) K/uL Eos # (Auto) 0.03 (0.00-0.50) K/uL Baso # (Auto) 0.02 (0.00-0.20) K/uL PT 10.9 (9.5-12.0) SEC INR 1.0 APTT 27.0 (21.0-31.3) SEC Sodium 138 (136-145) mmol/L Potassium 4.8 (3.5-5.1) mmol/L Chloride 99 (98-107) mmol/L Carbon Dioxide 26.7 (21.0-32.0) mmol/L BUN 14 (7-18) mg/dL Creatinine 1.06 (0.51-1.17) mg/dL Est Cr Clr Drug Dosing 122.78 mL/min Estimated GFR (MDRD) > 60 mL/min Glucose 97 (74-106) mg/dL Lactic Acid (0.4-2.0) mmol/L Calcium 9.2 (8.5-10.1) mg/dL Magnesium 1.6 L (1.8-2.4) mg/dL Total Bilirubin 0.4 (0.2-1.0) mg/dL AST 21 (15-37) U/L ALT 30 (12-78) U/L Alkaline Phosphatase 94 (46-116) IU/L Total Protein 8.2 (6.4-8.2) g/dL Albumin 4.5 (3.4-5.0) g/dL TSH, Ultra Sensitive 1.287 (0.358-3.740) mIU/mL 04/14/18 Range/Units 20:58 WBC (4.0-10.2) K/uL RBC (4.33-5.41) M/uL Hgb (13.1-16.8) g/dL Hct (39.0-49.0) % MCV (84.0-98.0) fL MCH (28.2-33.3) pg MCHC (31.7-36.0) g/dL RDW (11.2-14.1) % Plt Count (150-350) K/uL Neut % (Auto) (45.0-80.0) % Lymph % (Auto) (10.0-50.0) % [place] % (Auto) (2.0-14.0) % Eos % (Auto) (0.0-5.0) % Baso % (Auto) (0.0-2.0) % Neut # (Auto) (1.40-7.00) K/uL Lymph # (Auto) (0.50-3.50) K/uL [place] # (Auto) (0.00-1.00) K/uL Eos # (Auto) (0.00-0.50) K/uL Baso # (Auto) (0.00-0.20) K/uL PT (9.5-12.0) SEC INR APTT (21.0-31.3) SEC Sodium (136-145) mmol/L Potassium (3.5-5.1) mmol/L Chloride (98-107) mmol/L Carbon Dioxide (21.0-32.0) mmol/L BUN (7-18) mg/dL Creatinine (0.51-1.17) mg/dL Est Cr Clr Drug Dosing mL/min Estimated GFR (MDRD) mL/min Glucose (74-106) mg/dL Lactic Acid 1.3 (0.4-2.0) mmol/L Calcium (8.5-10.1) mg/dL Magnesium (1.8-2.4) mg/dL Total Bilirubin (0.2-1.0) mg/dL AST (15-37) U/L ALT (12-78) U/L Alkaline Phosphatase (46-116) IU/L Total Protein (6.4-8.2) g/dL Albumin (3.4-5.0) g/dL TSH, Ultra Sensitive (0.358-3.740) mIU/mL Blood cultures 2 were collected. Vital Signs - 24 hr 04/14/18 04/14/18 04/14/18 20:45 21:00 21:05 Temperature [ 40.2 C H 39.4 C H Temporal] Pulse, 120 H Peripheral [ Pulse Oximetry] Respiratory 25 H 30 H 30 H Rate Blood Pressure 164/83 H 158/91 H 148/84 H [Right Upper Arm] O2 Sat by Pulse 98 99 98 Oximetry 04/14/18 04/14/18 04/14/18 21:18 21:33 21:48 Temperature [ 39.2 C H 39.1 C H Temporal] Pulse, Peripheral [ Pulse Oximetry] Respiratory 19 19 19 Rate Blood Pressure 159/88 H 152/81 H 162/69 H [Right Upper Arm] O2 Sat by Pulse 99 99 99 Oximetry Meds: Medications Generic Name Dose Route Start Last Admin Trade Name Freq PRN Reason Stop Dose Admin Levofloxacin/Dextrose 500 mg/ 100 mls @ 100 mls/hr 04/14/18 22:03 04/14/18 22 :10 Premix IV 01/18/19 23:02 100 mls/hr ONETIME ONE Administration Sodium Chloride 10 ml 04/14/18 20:58 04/14/18 22:11 Saline Flush FLUSH 10 ml ASDIRECTED PRN Administration Keep Vein Open Discontinued Medications Generic Name Dose Route Start Last Admin Trade Name John PRN Reason Stop Dose Admin Acetaminophen 650 mg 04/14/18 20:58 04/14/18 21:07 Tylenol PO 04/14/18 20:59 650 mg ONETIME ONE Administration Famotidine 40 mg 04/14/18 21:01 04/14/18 21:07 Pepcid IVPUSH 04/14/18 21:02 40 mg ONETIME ONE Administration Lactated Ringer's 1,000 mls @ 999 mls/hr 04/14/18 21:01 04/14/18 21:08 Ringers, Lactated IV 04/14/18 22:01 999 mls/hr .BOLUS ONE Administration Ketorolac Tromethamine 30 mg 04/14/18 21:02 04/14/18 21:07 Toradol IVPUSH 04/14/18 21:03 30 mg ONETIME ONE Administration - Radiology Interpretation Free Text/Narrative:: chief gauger showed sinus tachycardia with heart rate in the 120s on arrival with improvement prior to admission to the low 100s with no ectopy or arrhythmia. Abdominal x-ray shows mildly increased nonspecific bowel gaseous pattern with moderate diffuse stool but no fluid levels, free air, ileus, obstruction, pulmonary infiltrates, cardiomegaly, CHF, pneumothorax, etc. Departure - Departure Time of Disposition: 22:20 Disposition: Refer to Observation Condition: Good Clinical Impression: Fever of unknown origin, Elevated blood pressure reading, Tachycardia, Osteoarthritis, Hypomagnesemia - Discharge Information *PRESCRIPTION DRUG MONITORING PROGRAM REVIEWED*: Not Applicable *COPY OF PRESCRIPTION DRUG MONITORING REPORT IN PATIENT TIERRA: Not Applicable Referrals: Stella López NP [Primary Care Provider] - Forms: ED Department Discharge Care Plan Goals: See plan - Problem List & Annotations (1) Fever of unknown origin SNOMED Code(s): 1831914 Code(s): R50.9 - FEVER, UNSPECIFIED Status: Acute Priority: High Current Visit: Yes Onset Date: 04/14/18 Annotation/Comment:: High fever of unknown etiology with some mild leukocytosis, however no significant clinical findings with exception of sinus tachycardia likely secondary fever. Viral gastroenteritis earlier this week, however no significant abdominal findings at this time. Blood cultures 2 were collected. Urine specimen and sputum specimen to be obtained MIMI after admission. Patient started on IV Zosyn and IV Levaquin. Negative meningeal signs with negative influenza and strep screens as above. The patient has tolerated Augmentin well in the past. 2 new to observe closely with patient at risk for sepsis, however lactic acid level normal at this time. Aggressive IV hydration during this hospitalization, including 1 L of lactated Ringer's initiated immediately after his arrival. Fever improved after treatment with oral Tylenol and IV Toradol. IV Pepcid given as GI prophylaxis. (2) Tachycardia SNOMED Code(s): 6586294 Code(s): R00.0 - TACHYCARDIA, UNSPECIFIED Status: Acute Priority: High Current Visit: Yes Onset Date: 04/14/18 Annotation/Comment:: As above. Note normal TSH today. (3) Elevated blood pressure reading SNOMED Code(s): 91121378 Code(s): R03.0 - ELEVATED BLOOD-PRESSURE READING, W/O DIAGNOSIS OF HTN Status: Acute Priority: Medium Current Visit: Yes Annotation/Comment:: Likely secondary to current illness. Observe for now. No previous history of hypertension. (4) Hypomagnesemia SNOMED Code(s): 879878830 Code(s): E83.42 - HYPOMAGNESEMIA Status: Acute Priority: Medium Current Visit: Yes Annotation/Comment:: Observe for now. IV fluids given as above (5) Osteoarthritis SNOMED Code(s): 064348342 Code(s): M19.90 - UNSPECIFIED OSTEOARTHRITIS, UNSPECIFIED SITE Status: Chronic Priority: Medium Current Visit: Yes Annotation/Comment:: Stable by history with exception of generalized arthralgias from his current infection. Qualifiers: Osteoarthritis location: multiple joints Osteoarthritis type: primary Qualified Code(s): M15.0 - Primary generalized (osteo)arthritis - Problem List Review Problem List Initiated/Reviewed/Updated: Yes - My Orders Last 24 Hours: My Active Orders 04/14/18 20:50 CULTURE STREP A CONFIRMATION [] Stat 04/14/18 20:58 Cardiac Monitoring [RC] CONTINUOUS Communication Order [RC] ROUTINE Oxygen Therapy, ED [RC] PRN Peripheral IV Care [RC] . DIRECTED Pulse Oximetry [RC] CONTINUOUS Up With Assistance [RC] ASDIRECTED CULTURE BLOOD [BC] Stat CULTURE BLOOD [BC] Stat CULTURE SPUTUM + SMEAR [RM] Urgent CULTURE URINE [RM] Routine STREP SCRN A RAPID W CULT CONF [RM] Stat UA W/MICROSCOPIC [URIN] Stat Sodium Chloride 0.9% [Saline Flush] 10 ml FLUSH ASDIRECTED PRN Blood Culture x2 Reflex Set [OM.PC] Stat Obtain Past Medical Record [OM.PC] Stat Peripheral IV Insertion Adult [OM.PC] Stat Resuscitation Status Routine 04/14/18 21:01 Abdomen Series w Chest 1V [CR] Stat 04/14/18 22:03 Levofloxacin/Dextrose 5%-Water [Levaquin in D5W 500 MG/100 ML] 500 mg Premix Bag 1 bag IV ONETIME 04/14/18 Breakfast Nothing Per Oral Diet [DIET] - Assessment/Plan Admission H&P: Please use this note as an admission H&P Last 24 Hours: My Active Orders 04/14/18 20:50 CULTURE STREP A CONFIRMATION [RM] Stat 04/14/18 20:58 Cardiac Monitoring [RC] CONTINUOUS Communication Order [RC] ROUTINE Oxygen Therapy, ED [RC] PRN Peripheral IV Care [RC] . DIRECTED Pulse Oximetry [RC] CONTINUOUS Up With Assistance [RC] ASDIRECTED CULTURE BLOOD [BC] Stat CULTURE BLOOD [BC] Stat CULTURE SPUTUM + SMEAR [RM] Urgent CULTURE URINE [RM] Routine STREP SCRN A RAPID W CULT CONF [RM] Stat UA W/MICROSCOPIC [URIN] Stat Sodium Chloride 0.9% [Saline Flush] 10 ml FLUSH ASDIRECTED PRN Blood Culture x2 Reflex Set [OM.PC] Stat Obtain Past Medical Record [OM.PC] Stat Peripheral IV Insertion Adult [OM.PC] Stat Resuscitation Status Routine 04/14/18 21:01 Abdomen Series w Chest 1V [CR] Stat 04/14/18 22:03 Levofloxacin/Dextrose 5%-Water [Levaquin in D5W 500 MG/100 ML] 500 mg Premix Bag 1 bag IV ONETIME 04/14/18 Breakfast Nothing Per Oral Diet [DIET] Assessment:: As above Plan: As above. Extensive precautions were given to the patient and his family, who are in agreement with the treatment plan. The patient's condition is stable enough for observation status and general supervision. Dr. Reynolds assumes care in the a.m.
[2018-04-14] MEDS ORDERED: Acetaminophen 325 MG Tab PO ONE (20:58)
[2018-04-14] MEDS ORDERED: Lactated Ringers 1,000 ML IV ONE (21:01)
[2018-04-14] MEDS ORDERED: Famotidine 20 MG/2 ML SDV IVPUSH ONE (21:01)
[2018-04-14] MEDS ORDERED: Ketorolac 30 MG/ML SDV IVPUSH ONE (21:02)
[2018-04-14] MEDS: Sodium Chloride 0.9% 10 ML Syringe FLUSH PRN ×2 (21:08→22:11)
[2018-04-14 21:33] LABS: CHLORIDE,CL 99 mmol/L (98-107); SODIUM,NA 138 mmol/L (136-145)
[2018-04-14] MEDS ORDERED: Levofloxacin/Dextrose 5%-Water 500 MG in Premix Bag 1 BAG IV ONE (22:03)
[2018-04-14] MEDS ORDERED: Albuterol 0.083% 2.5 MG/3 ML Neb Soln NEB PRN (22:25)
[2018-04-14] MEDS ORDERED: Albuterol/Ipratropium 3.0-0.5 MG/3 ML Neb Soln NEB PRN (22:25)
[2018-04-14] MEDS: Sodium Chloride 0.9% 10 ML Syringe FLUSH SCH (23:18)
[2018-04-14] MEDS: Dextromethorphan/guaiFENesin 600-30 MG Tab.ER PO SCH (23:18)
[2018-04-14] MEDS: Piperacillin/Tazobactam 3.375 GM in Sodium Chloride 0.9% 100 ML IV SCH (23:18)
[2018-04-14] MEDS ORDERED: Aluminum Hydroxide/Magnesium Hydroxide/Simethicone Susp 30 ML Cup PO PRN (23:18)
[2018-04-14] MEDS: Lactated Ringers 1,000 ML IV SCH (23:19)
[2018-04-14] MEDS: Temazepam 15 MG Cap PO PRN (23:32)
[2018-04-15] MEDS: Piperacillin/Tazobactam 3.375 GM in Sodium Chloride 0.9% 100 ML IV SCH ×4 (04:54→22:50)
[2018-04-15] MEDS: Sodium Chloride 0.9% 10 ML Syringe FLUSH PRN (04:55)
[2018-04-15] MEDS: Ketorolac 15 MG/ML SDV IVPUSH PRN ×2 (05:02→21:45)
[2018-04-15] MEDS: Dextromethorphan/guaiFENesin 600-30 MG Tab.ER PO SCH ×2 (07:40→17:26)
[2018-04-15] MEDS ORDERED: Dextromethorphan/guaiFENesin 600-30 MG Tab.ER PO SCH (08:00)
[2018-04-15 08:08] LABS: CHLORIDE,CL 104 mmol/L (98-107); SODIUM,NA 141 mmol/L (136-145)
[2018-04-15] MEDS: Acetaminophen 325 MG Tab PO PRN (08:59)
[2018-04-15] MEDS: Lactated Ringers 1,000 ML IV SCH ×2 (09:01→16:34)
[2018-04-15] MEDS: Sodium Chloride 0.9% 10 ML Syringe FLUSH SCH ×2 (10:54→22:50)
[2018-04-15] MEDS: Temazepam 15 MG Cap PO PRN (21:46)
[2018-04-15] MEDS ORDERED: Levofloxacin/Dextrose 5%-Water 500 MG in Premix Bag 1 BAG IV SCH (22:00)
[2018-04-16] MEDS: Lactated Ringers 1,000 ML IV SCH (03:37)
[2018-04-16] MEDS: Piperacillin/Tazobactam 3.375 GM in Sodium Chloride 0.9% 100 ML IV SCH (04:36)
[2018-04-16] MEDS: Sodium Chloride 0.9% 10 ML Syringe FLUSH PRN (04:36)
[2018-04-16] MEDS: Dextromethorphan/guaiFENesin 600-30 MG Tab.ER PO SCH (08:09)
[2018-04-16] MEDS: Acetaminophen 325 MG Tab PO PRN (08:09)
[2018-04-16 08:19] LABS: CHLORIDE,CL 105 mmol/L (98-107); SODIUM,NA 141 mmol/L (136-145)
--- NOTE | 2018-04-16 11:10 | PCM.PN ---
- General Info Date of Service: 04/15/18 Admission Dx/Problem (Free Text): Patient is a 28-year-old who was admitted with generalized body aches and flulike symptoms and fever patient was started on antibiotics and was feeling better still having fevers we decided to eat hydrating him and evaluate him in the morning for possible transfer home Functional Status: Reports: Tolerating Diet - Review of Systems General: Reports: Fever, Weakness HEENT: Reports: No Symptoms Pulmonary: Reports: No Symptoms Cardiovascular: Reports: No Symptoms Gastrointestinal: Reports: No Symptoms Genitourinary: Reports: No Symptoms Musculoskeletal: Reports: No Symptoms Skin: Reports: No Symptoms Neurological: Reports: No Symptoms Psychiatric: Reports: No Symptoms - Patient Data Vitals - Most Recent: Last Vital Signs Temp 97.8 F 04/16/18 08:19 Pulse 79 04/16/18 07:30 Resp 18 04/16/18 07:30 BP 130/70 04/16/18 07:30 Pulse Ox 96 04/16/18 07:30 Weight - Most Recent: 202 lb 9 oz I&O - Last 24 Hours: Intake & Output 04/15/18 04/16/18 04/16/18 22:59 06:59 14:59 Intake Total 2030 1920 360 Output Total 1850 1000 700 Balance 180 920 -340 Lab Results Last 24 Hours: Laboratory Results - last 24 hr 04/16/18 04/16/18 Range/Units 07:50 07:50 WBC 8.0 (4.0-10.2) K/uL RBC 4.93 (4.33-5.41) M/uL Hgb 14.3 (13.1-16.8) g/dL Hct 41.9 (39.0-49.0) % MCV 85.0 (84.0-98.0) fL MCH 29.0 (28.2-33.3) pg MCHC 34.1 (31.7-36.0) g/dL RDW 13.0 (11.2-14.1) % Plt Count 186 (150-350) K/uL Neut % (Auto) 71.4 (45.0-80.0) % Lymph % (Auto) 15.0 (10.0-50.0) % [place] % (Auto) 12.4 (2.0-14.0) % Eos % (Auto) 1.1 (0.0-5.0) % Baso % (Auto) 0.1 (0.0-2.0) % Neut # (Auto) 5.71 (1.40-7.00) K/uL Lymph # (Auto) 1.20 (0.50-3.50) K/uL [place] # (Auto) 0.99 (0.00-1.00) K/uL Eos # (Auto) 0.09 (0.00-0.50) K/uL Baso # (Auto) 0.01 (0.00-0.20) K/uL Sodium 141 (136-145) mmol/L Potassium 4.0 (3.5-5.1) mmol/L Chloride 105 (98-107) mmol/L Carbon Dioxide 26.3 (21.0-32.0) mmol/L BUN 9 (7-18) mg/dL Creatinine 1.07 (0.51-1.17) mg/dL Est Cr Clr Drug Dosing 121.64 mL/min Estimated GFR (MDRD) > 60 mL/min Glucose 79 (74-106) mg/dL Calcium 8.9 (8.5-10.1) mg/dL Kumar Results Last 24 Hours: Microbiology 04/15/18 00:15 Urine Culture - Preliminary Urine, Clean Catch NO GROWTH AFTER 1 DAY 04/15/18 22:08 Stool Occult Blood ([facility]) - Final Stool / Feces 04/14/18 20:50 Quick Strep Confirmation Culture - Final Throat NO GROUP A STREP ISOLATED Group A Streptococcus Rapid Screen - Final NEGATIVE STREP A SCREEN 04/14/18 21:45 Aerobic Blood Culture - Preliminary Blood - Venous - Lab Draw NO GROWTH AFTER 1 DAY Anaerobic Blood Culture - Preliminary NO GROWTH AFTER 1 DAY 04/14/18 20:58 Aerobic Blood Culture - Preliminary Blood - Venous NO GROWTH AFTER 1 DAY Anaerobic Blood Culture - Preliminary NO GROWTH AFTER 1 DAY Med Orders - Current: Current Medications Acetaminophen (Tylenol) 650 mg PO Q4H PRN PRN Reason: Pain/Fever Last Admin: 04/16/18 08:09 Dose: 650 mg Al Hydroxide/Mg Hydroxide (Mag-Al Plus) 30 ml PO Q4H PRN PRN Reason: Indigestion Last Admin: 04/14/18 23:32 Dose: 30 ml Albuterol (Proventil Neb Soln) 2.5 mg NEB Q2H PRN PRN Reason: Dyspnea Albuterol/Ipratropium (Duoneb 3.0-0.5 Mg/3 Ml) 3 ml NEB Q4HRRT PRN PRN Reason: Dyspnea Guaifenesin/Dextromethorphan (Mucinex Dm Er 600-30 Mg) 1 tab PO BID [facility] Last Admin: 04/16/18 08:09 Dose: 1 tab Levofloxacin/Dextrose 500 mg/ (Premix) 100 mls @ 100 mls/hr IV Q24H [facility] Last Admin: 04/15/18 21:46 Dose: 100 mls/hr Piperacillin Sod/Tazobactam (Sod 3.375 gm/ Sodium Chloride) 100 mls @ 200 mls/ hr IV Q6H [facility] Last Admin: 04/16/18 04:36 Dose: 200 mls/hr Lactated Ringer's (Ringers, Lactated) 1,000 mls @ 125 mls/hr IV ASDIRECTED [facility] Last Admin: 04/16/18 03:37 Dose: 125 mls/hr Sodium Chloride (Saline Flush) 10 ml FLUSH ASDIRECTED PRN PRN Reason: Keep Vein Open Last Admin: 04/16/18 04:36 Dose: 10 ml Sodium Chloride (Saline Flush) 10 ml FLUSH Q12H [facility] Last Admin: 04/15/18 22:50 Dose: 10 ml Temazepam (Restoril) 15 mg PO BEDTIME PRN PRN Reason: Insomnia Last Admin: 04/15/18 21:46 Dose: 15 mg Discontinued Medications Acetaminophen (Tylenol) 650 mg PO ONETIME ONE Stop: 04/14/18 20:59 Last Admin: 04/14/18 21:07 Dose: 650 mg Famotidine (Pepcid) 40 mg IVPUSH ONETIME ONE Stop: 04/14/18 21:02 Last Admin: 04/14/18 21:07 Dose: 40 mg Guaifenesin/Dextromethorphan (Mucinex Dm Er 600-30 Mg) 1 tab PO BID [facility] Lactated Ringer's (Ringers, Lactated) 1,000 mls @ 999 mls/hr IV .BOLUS ONE Stop: 04/14/18 22:01 Last Admin: 04/14/18 21:08 Dose: 999 mls/hr Levofloxacin/Dextrose 500 mg/ (Premix) 100 mls @ 100 mls/hr IV ONETIME ONE Stop: 04/14/18 23:02 Last Admin: 04/14/18 22:10 Dose: 100 mls/hr Ketorolac Tromethamine (Toradol) 30 mg IVPUSH ONETIME ONE Stop: 04/14/18 21:03 Last Admin: 04/14/18 21:07 Dose: 30 mg Ketorolac Tromethamine (Toradol) 15 mg IVPUSH Q6H PRN PRN Reason: Pain/Fever Stop: 04/16/18 03:01 Last Admin: 04/15/18 21:45 Dose: 15 mg - Exam General: Alert, Oriented HEENT: Pupils Equal Neck: Supple Lungs: Clear to Auscultation, Normal Respiratory Effort Cardiovascular: Regular Rate, Regular Rhythm GI/Abdominal Exam: Normal Bowel Sounds, Soft, Non-Tender, No Organomegaly, No Distention, No Abnormal Bruit, No Mass, Pelvis Stable (Male) Exam: No Hernia, Normal Inspection, Normal Prostate, Circumcised Back Exam: Normal Inspection, Full Range of Motion Extremities: Normal Inspection, Normal Range of Motion, Non-Tender, No Pedal Edema, Normal Capillary Refill Skin: Warm, Dry, Intact Wound/Incisions: Healing Well Neurological: No New Focal Deficit Psy/Mental Status: Alert, Normal Affect, Normal Mood - Problem List & Annotations (1) Elevated blood pressure reading SNOMED Code(s): 64251203 Code(s): R03.0 - ELEVATED BLOOD-PRESSURE READING, W/O DIAGNOSIS OF HTN Status: Acute Priority: Medium Current Visit: Yes Annotation/Comment:: Likely secondary to current illness. Observe for now. No previous history of hypertension. We'll sent home patient is to monitor blood pressure at home return to clinic if continuing (2) Fever of unknown origin SNOMED Code(s): 2489061 Code(s): R50.9 - FEVER, UNSPECIFIED Status: Acute Priority: High Current Visit: Yes Onset Date: 04/14/18 Annotation/Comment:: Patient doing much better high fever this morning will continue observing him white count back to normal reviewed labs (3) Dehydration SNOMED Code(s): 18136825 Code(s): E86.0 - DEHYDRATION Status: Acute Priority: High Current Visit : No Onset Date: ~05/13/17 (4) Headache due to viral infection SNOMED Code(s): 816085979 Code(s): B34.9 - VIRAL INFECTION, UNSPECIFIED; R51 - HEADACHE Status: Acute Priority: High Current Visit: No Onset Date: 05/12/17 Annotation/ Comment:: Plan to discharge him home in morning - Problem List Review Problem List Initiated/Reviewed/Updated: Yes - My Orders Last 24 Hours: My Active Orders 04/15/18 10:54 INFLUENZA A,B, H1N1 BY PCR [MREF] Routine - Plan Plan:: We'll keep her overnight discharge in the morning continue improving
--- NOTE | 2018-04-16 11:19 | PCM.DCSUM1 ---
Discharge Summary - Hospital Course Free Text/Narrative:: Patient is a 28-year-old who was admitted with fever of unknown etiology possible UTI patient was hydrated over the next 24-48 hours now feeling better would like to go home Diagnosis: Stroke: No - Discharge Data Discharge Date: 04/16/18 Discharge Disposition: Home, Self-Care 01 Condition: Good - Discharge Diagnosis/Problem(s) (1) Elevated blood pressure reading SNOMED Code(s): 31618792 ICD Code: R03.0 - ELEVATED BLOOD-PRESSURE READING, W/O DIAGNOSIS OF HTN Status: Acute Priority: Medium Current Visit: Yes Problem Details: Likely secondary to current illness. Observe for now. No previous history of hypertension. We'll sent home patient is to monitor blood pressure at home return to clinic if continuing (2) Fever of unknown origin SNOMED Code(s): 5928132 ICD Code: R50.9 - FEVER, UNSPECIFIED Status: Acute Priority: High Current Visit: Yes Onset Date: 04/14/18 Problem Details: Patient doing much better high fever this morning will continue observing him white count back to normal reviewed labs (3) Dehydration SNOMED Code(s): 26510975 ICD Code: E86.0 - DEHYDRATION Status: Acute Priority: High Current Visit: No Onset Date: ~05/13/17 (4) Headache due to viral infection SNOMED Code(s): 958797707 ICD Code: B34.9 - VIRAL INFECTION, UNSPECIFIED; R51 - HEADACHE Status: Acute Priority: High Current Visit: No Onset Date: 05/12/17 Problem Details: Plan to discharge him home in morning - Discharge Plan *PRESCRIPTION DRUG MONITORING PROGRAM REVIEWED*: Not Applicable *COPY OF PRESCRIPTION DRUG MONITORING REPORT IN PATIENT [facility]ER[facility]: Not Applicable Home Medications: Home Meds . [No Known Home Meds] 04/14/18 [History] Patient Handouts: Fever, Adult, Piperacillin; Tazobactam injection, Levofloxacin injection, Famotidine injection Forms: ED Department Discharge Referrals: Stella López NP [Primary Care Provider] - - Discharge Summary/Plan Comment DC Time >30 min.: No Discharge Summary/Plan Comment: Patient is a 55-nep[age]-gth-male who was admitted with generalized aches elevated temperature of unknown etiology patient was admitted started on antibiotics over the next 48 hours patient improves has been afebrile and would like to go home patient will be discharged to follow-up in clinic if any changes - General Info Date of Service: 04/16/18 Functional Status: Reports: Tolerating Diet, Ambulating, Urinating - Review of Systems General: Reports: No Symptoms HEENT: Reports: No Symptoms Pulmonary: Reports: No Symptoms Cardiovascular: Reports: No Symptoms Gastrointestinal: Reports: No Symptoms Genitourinary: Reports: No Symptoms Musculoskeletal: Reports: No Symptoms Skin: Reports: No Symptoms Neurological: Reports: No Symptoms Psychiatric: Reports: No Symptoms - Patient Data Vitals - Most Recent: Last Vital Signs Temp 97.8 F 04/16/18 08:19 Pulse 79 04/16/18 07:30 Resp 18 04/16/18 07:30 BP 130/70 04/16/18 07:30 Pulse Ox 96 04/16/18 07:30 Weight - Most Recent: 202 lb 9 oz I&O - Last 24 hours: Intake & Output 04/15/18 04/16/18 04/16/18 22:59 06:59 14:59 Intake Total 2030 1920 360 Output Total 1850 1000 700 Balance 180 920 -340 Lab Results - Last 24 hrs: Laboratory Results - last 24 hr 04/16/18 04/16/18 Range/Units 07:50 07:50 WBC 8.0 (4.0-10.2) K/uL RBC 4.93 (4.33-5.41) M/uL Hgb 14.3 (13.1-16.8) g/dL Hct 41.9 (39.0-49.0) % MCV 85.0 (84.0-98.0) fL MCH 29.0 (28.2-33.3) pg MCHC 34.1 (31.7-36.0) g/dL RDW 13.0 (11.2-14.1) % Plt Count 186 (150-350) K/uL Neut % (Auto) 71.4 (45.0-80.0) % Lymph % (Auto) 15.0 (10.0-50.0) % [place] % (Auto) 12.4 (2.0-14.0) % Eos % (Auto) 1.1 (0.0-5.0) % Baso % (Auto) 0.1 (0.0-2.0) % Neut # (Auto) 5.71 (1.40-7.00) K/uL Lymph # (Auto) 1.20 (0.50-3.50) K/uL [place] # (Auto) 0.99 (0.00-1.00) K/uL Eos # (Auto) 0.09 (0.00-0.50) K/uL Baso # (Auto) 0.01 (0.00-0.20) K/uL Sodium 141 (136-145) mmol/L Potassium 4.0 (3.5-5.1) mmol/L Chloride 105 (98-107) mmol/L Carbon Dioxide 26.3 (21.0-32.0) mmol/L BUN 9 (7-18) mg/dL Creatinine 1.07 (0.51-1.17) mg/dL Est Cr Clr Drug Dosing 121.64 mL/min Estimated GFR (MDRD) > 60 mL/min Glucose 79 (74-106) mg/dL Calcium 8.9 (8.5-10.1) mg/dL [place] Results - Last 24 hrs: Microbiology 04/15/18 00:15 Urine Culture - Preliminary Urine, Clean Catch NO GROWTH AFTER 1 DAY 04/15/18 22:08 Stool Occult Blood ([facility]) - Final Stool / Feces 04/14/18 20:50 Quick Strep Confirmation Culture - Final Throat NO GROUP A STREP ISOLATED Group A Streptococcus Rapid Screen - Final NEGATIVE STREP A SCREEN 04/14/18 21:45 Aerobic Blood Culture - Preliminary Blood - Venous - Lab Draw NO GROWTH AFTER 1 DAY Anaerobic Blood Culture - Preliminary NO GROWTH AFTER 1 DAY 04/14/18 20:58 Aerobic Blood Culture - Preliminary Blood - Venous NO GROWTH AFTER 1 DAY Anaerobic Blood Culture - Preliminary NO GROWTH AFTER 1 DAY Med Orders - Current: Current Medications Acetaminophen (Tylenol) 650 mg PO Q4H PRN PRN Reason: Pain/Fever Last Admin: 04/16/18 08:09 Dose: 650 mg Al Hydroxide/Mg Hydroxide (Mag-Al Plus) 30 ml PO Q4H PRN PRN Reason: Indigestion Last Admin: 04/14/18 23:32 Dose: 30 ml Albuterol (Proventil Neb Soln) 2.5 mg NEB Q2H PRN PRN Reason: Dyspnea Albuterol/Ipratropium (Duoneb 3.0-0.5 Mg/3 Ml) 3 ml NEB Q4HRRT PRN PRN Reason: Dyspnea Guaifenesin/Dextromethorphan (Mucinex Dm Er 600-30 Mg) 1 tab PO BID [facility] Last Admin: 04/16/18 08:09 Dose: 1 tab Levofloxacin/Dextrose 500 mg/ (Premix) 100 mls @ 100 mls/hr IV Q24H [facility] Last Admin: 04/15/18 21:46 Dose: 100 mls/hr Piperacillin Sod/Tazobactam (Sod 3.375 gm/ Sodium Chloride) 100 mls @ 200 mls/ hr IV Q6H [facility] Last Admin: 04/16/18 04:36 Dose: 200 mls/hr Lactated Ringer's (Ringers, Lactated) 1,000 mls @ 125 mls/hr IV ASDIRECTED [facility] Last Admin: 04/16/18 03:37 Dose: 125 mls/hr Sodium Chloride (Saline Flush) 10 ml FLUSH ASDIRECTED PRN PRN Reason: Keep Vein Open Last Admin: 04/16/18 04:36 Dose: 10 ml Sodium Chloride (Saline Flush) 10 ml FLUSH Q12H [facility] Last Admin: 04/15/18 22:50 Dose: 10 ml Temazepam (Restoril) 15 mg PO BEDTIME PRN PRN Reason: Insomnia Last Admin: 04/15/18 21:46 Dose: 15 mg Discontinued Medications Acetaminophen (Tylenol) 650 mg PO ONETIME ONE Stop: 04/14/18 20:59 Last Admin: 04/14/18 21:07 Dose: 650 mg Famotidine (Pepcid) 40 mg IVPUSH ONETIME ONE Stop: 04/14/18 21:02 Last Admin: 04/14/18 21:07 Dose: 40 mg Guaifenesin/Dextromethorphan (Mucinex Dm Er 600-30 Mg) 1 tab PO BID [facility] Lactated Ringer's (Ringers, Lactated) 1,000 mls @ 999 mls/hr IV .BOLUS ONE Stop: 04/14/18 22:01 Last Admin: 04/14/18 21:08 Dose: 999 mls/hr Levofloxacin/Dextrose 500 mg/ (Premix) 100 mls @ 100 mls/hr IV ONETIME ONE Stop: 04/14/18 23:02 Last Admin: 04/14/18 22:10 Dose: 100 mls/hr Ketorolac Tromethamine (Toradol) 30 mg IVPUSH ONETIME ONE Stop: 04/14/18 21:03 Last Admin: 04/14/18 21:07 Dose: 30 mg Ketorolac Tromethamine (Toradol) 15 mg IVPUSH Q6H PRN PRN Reason: Pain/Fever Stop: 04/16/18 03:01 Last Admin: 04/15/18 21:45 Dose: 15 mg
== END 2018-04-16 11:55 | disposition home or self-care (01) ==
LOC: LL.ED 20:34 → LL.MS 21:45 → UNDOADMOB 21:45 → UNDODISOB 04-16 11:55
PROVIDERS: ADMIT Family Medicine; ATTEND Family Medicine
DX: B34.9 Viral infection, unspecified (principal); R50.9 Fever, unspecified; E86.0 Dehydration; R03.0 Elevated blood-pressure reading, without diagnosis of hypertension; Z88.1 Allergy status to other antibiotic agents
CPT/HCPCS: 36415; 74022; 80048; 80053; 81001; 82272; 83605; 83735; 84443; 85025; 85610; 85730; 87040; 87081; 87086; 87430; 87502; 87804; 96361; 96365; 96366; 96367; 96375; 96376; 99285; A9270-GY; G0378; J1885; J1956; J2543; J3490; J7050; J7120

== ENCOUNTER 2019-11-07 15:09 | Emergency (ER) | payer BC, OTHER ==
--- NOTE | 2019-11-07 15:41 | EDM.PDOC ---
ED HPI GENERAL MEDICAL PROBLEM - General Chief Complaint: Laceration Stated Complaint: laceration Time Seen by Provider: 11/07/19 15:31 Source of Information: Reports: Patient History Limitations: Reports: No Limitations - History of Present Illness INITIAL COMMENTS - FREE TEXT/NARRATIVE: Using razor grinder and razor grinder bounced upwards, injuring fingers/hands. Denies loss of function of fingers/no deformity. Does have scattered lacerations. Denies other injuries or other acute complaints. rIGHT hAND Pain Score (Numeric/FACES): 8 - Related Data Allergies Allergy/AdvReac Type Severity Reaction Status Date / Time cefixime [From Suprax] Allergy Hives Verified 11/07/19 17:21 Home Meds: Home Meds Loratadine [Claritin] 10 mg PO DAILY PRN 11/07/19 [History] Multivitamin 1 tab PO DAILY 11/07/19 [History] Past Medical History HEENT History: Reports: Allergic Rhinitis, Otitis Media, Other (See Below) Other HEENT History: Possible nasal fracture as below. Recurrent otitis medias a child with no PE tubes required. Cardiovascular History: Reports: None, Other (See Below) Other Cardiovascular History: Elevated blood pressure with illnesses but no history of hypertension. He does not know his cholesterol status. Respiratory History: Reports: Intubation, Previous, Other (See Below) Other Respiratory History: Intubation for tonsillectomy as below. Gastrointestinal History: Reports: None Genitourinary History: Reports: None Musculoskeletal History: Reports: Arthritis, Back Pain, Chronic, Fracture, Osteoarthritis, Other (See Below) Other Musculoskeletal History: Possible nasal fracture at age 7. Right Distal tibial fracture on 07/19/04. Neurological History: Reports: Concussion, Head Trauma, Other (See Below) Other Neuro History: Head concussion at about age 12. Psychiatric History: Reports: None Endocrine/Metabolic History: Reports: None Hematologic History: Reports: None Immunologic History: Reports: None Oncologic (Cancer) History: Reports: None Dermatologic History: Reports: None - Infectious Disease History Infectious Disease History: Reports: C-Difficile, Chicken Pox, Influenza, Other (See Below) - Past Surgical History Head Surgeries/Procedures: Reports: None HEENT Surgical History: Reports: Adenoidectomy, Oral Surgery, Tonsillectomy, Other (See Below) Other HEENT Surgeries/Procedures: Tonsillectomy and adenoidectomy on 10/22/96. [place] teeth extraction 4 at age 16. Cardiovascular Surgical History: Reports: None Respiratory Surgical History: Reports: None GI Surgical History: Reports: None Male Surgical History: Reports: Circumcision, Other (See Below) Other Male Surgeries/Procedures: Circumcision as an infant. Endocrine Surgical History: Reports: None Neurological Surgical History: Reports: None Musculoskeletal Surgical History: Reports: None Oncologic Surgical History: Reports: None Dermatological Surgical History: Reports: None - Past Imaging History Past Imaging History: Reports: CAT Scan ( CT scan of the right arm on 09/14/13.) Social & Family History - Family History Family Medical History: Noncontributory HEENT: Reports: Macular Degeneration, Other (See Below) Other HEENT Family History: Macular degeneration in paternal grandmother. Cardiac: Reports: Aneurysm, CAD, Heart Failure, Heart Murmur, High Cholesterol, Hypertension, UT, Stent, Other (See Below) Other Cardiac Family History: Paternal uncle with coronary artery disease and PTCA/stent placement at age 55. Paternal grandmother with valvular disease, coronary artery disease, UT, and fatal CHF at age 90. Mother with PSVT. Paternal and maternal grandparents and father with hypertension and hyperlipidemia. Pat ernal aunt with cerebral aneurysm as below. Respiratory: Reports: Asthma, Pneumothorax, Sleep Apnea, Other (See Below) Other Respiratory Family Hisory: Infant son with congenital pneumothorax. Maternal grandmother with asthma. Father with sleep apnea. GI: Reports: Bowel Obstruction, Other (See Below) Other GI Family History: Maternal grandfather with recurrent bowel obstructions of unknown etiology. OBGYN: Reports: None Musculoskeletal: Reports: Arthritis, Gout, Other (See Below) Other Musculoskeletal Family History: Maternal grandfather and maternal uncle with gout. Neurological: Reports: Alzheimers Disease, Cerebral Aneurysms, CVA, Dementia, Parkinson's, Other (See Below) Other Neurological Family History: Maternal grandfather and paternal grandmother with OBS. Maternal uncle with Parkinson's disease. Paternal aunt with hemorrhagic CVA secondary to a cerebral aneurysm age 56. Paternal grandmother with CVA. Endocrine/Metabolic: Reports: Diabetes, type II, Hypothyroidism, IDDM, Other (See Below) Other Endocrine/Metabolic Family History: Paternal grandmother with IDDM and hypothyroidism. Hematologic: Reports: None Immunologic: Reports: None Dermatologic: Reports: Psoriasis, Other (See Below) Other Dermatologic Family History: Maternal grandfather with psoriasis. Oncologic: Reports: Breast, Colon, Metastatic, Prostate, Other (See Below) Other Oncologic Family History: Father with prostate cancer in his 50s. BRCA gene in family with paternal aunt having breast cancer in her 40s. Paternal grandfather with metastatic prostate cancer fatal at 67. Paternal great- grandfather with fatal colon cancer at age 70. - Caffeine Use Caffeine Use: Reports: Coffee, Soda - Sexual History Sexual History: Reports: Sexually Active, Single Partner - Living Situation & Occupation Living situation: Reports: (2016. One son), with Family Occupation: Employed ([employer]) ED ROS GENERAL - Review of Systems Review Of Systems: See Below Musculoskeletal: Reports: Hand Pain Skin: Reports: Wound Neurological: Reports: No Symptoms ED EXAM, SKIN/RASH Exam: See Below Exam Limited By: No Limitations General Appearance: Alert, WD/WN, No Apparent Distress Eye Exam: Bilateral Eye: Foreign Body, PERRL Ears: Hearing Grossly Normal Head: Atraumatic, Normocephalic Neck: Supple Respiratory/Chest: No Respiratory Distress Extremities: Normal Capillary Refill, Other (no deformity of hands/fingers on exam. Scattered lacerations noted. Tendon function appears intact) Neurological: Alert, Oriented, Normal Cognition, Normal Gait, No Motor/Sensory Deficits Psychiatric: Normal Affect, Normal Mood Skin: Warm, Other (Left hand: has 5 linear lacerations back of left hand, one deep enough for sutures. 2.5cm in length. Right hand: Two 1cm superficial lacerations right thumb pad. One 1cm superficial laceration 2nd finger dorsally/distal phalanx. One 1cm deeper laceration dorsal distal 3rd digit. One 0.75cm avulsion of tissue noted tip of 4th right finger. Two 1cm superficial lacerations pad of 5th right fingertip.) ED SKIN PROCEDURES - Laceration/Wound Repair Left Dorsal Hand Appearance: Subcutaneous, Linear, Mildly Contaminated Distal NVT: Neuro & Vascular Intact, No Tendon Injury Anesthetic Type: Local Local Anesthesia - Lidocaine (Xylocaine): 1% Plain Local Anesthetic Volume: 3cc Skin Prep: Providone-Iodine (Betadine) Exploration/Debridement/Repair: Wound Explored, In a Bloodless Field, Explored to Base, No Foreign Material Found Closed with: Sutures Lac/Wound length In cm: 2 Suture Size: 4-0 # of Sutures: 2 Suture Type: Nylon, Simple Drain Placement: No Sterile Dressing Applied: Nurse Tetanus Status Addressed: Yes Complications: No Progress/Comments: Additional superficial linear skin abrasions adjacent to repaired laceration. These were closed with Dermabond. Total of 4. 2 to 2.5cm in length. Right Ventral Digit - 1st (Thumb) Appearance: Superficial, Linear Distal NVT: Neuro & Vascular Intact, No Tendon Injury Skin Prep: Providone-Iodine (Betadine) Exploration/Debridement/Repair: Wound Explored, In a Bloodless Field, Explored to Base, No Foreign Material Found Closed with: Dermabond Lac/Wound length In cm: 1 Drain Placement: No Sterile Dressing Applied: Nurse Tetanus Status Addressed: Yes Complications: No Right Dorsal Digit - 2nd (Index) Appearance: Superficial, Linear, Mildly Contaminated Distal NVT: Neuro & Vascular Intact, No Tendon Injury Skin Prep: Providone-Iodine (Betadine) Exploration/Debridement/Repair: Wound Explored, In a Bloodless Field, Explored to Base, No Foreign Material Found Closed with: Dermabond Lac/Wound length In cm: 1 Drain Placement: No Sterile Dressing Applied: Nurse Tetanus Status Addressed: Yes Complications: No Right Distal Digit - 3rd (Middle) Appearance: Subcutaneous, Mildly Contaminated Distal NVT: Neuro & Vascular Intact, No Tendon Injury Local Anesthesia - Lidocaine (Xylocaine): 1% Plain Local Anesthetic Volume: 2cc Skin Prep: Providone-Iodine (Betadine) Exploration/Debridement/Repair: Wound Explored, In a Bloodless Field, Explored to Base, No Foreign Material Found Closed with: Sutures Lac/Wound length In cm: 1 Suture Size: 4-0 # of Sutures: 2 Suture Type: Nylon, Simple Drain Placement: No Sterile Dressing Applied: Nurse Tetanus Status Addressed: Yes Complications: No Right Distal Digit - 4th (Ring) Appearance: Subcutaneous, Mildly Contaminated, Other (avulsed skin tip of finger) Distal NVT: Neuro & Vascular Intact, No Tendon Injury Anesthetic Type: Digital Local Anesthesia - Lidocaine (Xylocaine): 1% Plain Local Anesthesia - Bupivicaine (Marcaine): 0.5% Plain Local Anesthetic Volume: Other (4cc of mixed solution used for digital block) Skin Prep: Providone-Iodine (Betadine) Exploration/Debridement/Repair: Wound Explored, In a Bloodless Field, Explored to Base, Minimal Debridement, No Foreign Material Found Closed with: Sutures Lac/Wound length In cm: 2 Suture Size: 4-0 # of Sutures: 2 Suture Type: Nylon, Simple Drain Placement: No Sterile Dressing Applied: Nurse Tetanus Status Addressed: Yes Complications: No Right Ventral Digit - 5th (Baby) Appearance: Superficial Distal NVT: Neuro & Vascular Intact, No Tendon Injury Skin Prep: Providone-Iodine (Betadine) Exploration/Debridement/Repair: Wound Explored, In a Bloodless Field, Explored to Base Closed with: Dermabond Lac/Wound length In cm: 1.0 Drain Placement: No Sterile Dressing Applied: Nurse Tetanus Status Addressed: Yes Complications: No Course - Vital Signs Last Recorded V/S: Last Vital Signs Temp 36.8 C 11/07/19 15:45 Pulse 78 11/07/19 15:45 Resp 20 11/07/19 15:45 BP 132/64 11/07/19 15:45 Pulse Ox 98 11/07/19 15:45 - Orders/Labs/Meds Orders: Active Orders 24 hr Category Date Time Status Vaccines to be Administered [RC] PER UNIT ROUTINE Care 11/07/19 16:00 Ordered Hand Comp Min 3V Bi [CR] Stat Exams 11/07/19 15:11 Taken Meds: Medications Discontinued Medications Generic Name Dose Route Start Last Admin Trade Name John PRN Reason Stop Dose Admin Bupivacaine HCl 10 ml 11/07/19 15:50 11/07/19 15:53 Sensorcaine-Mpf 0.5% INJECT 11/07/19 15:51 10 ml ONETIME ONE Administration Diphtheria/Tetanus/Acell Pertussis 0.5 ml 11/07/19 15:59 11/07/19 17:23 Adacel IM 11/07/19 16:00 0.5 ml .ONCE ONE Administration Lidocaine HCl 5 ml 11/07/19 15:41 11/07/19 15:53 Xylocaine-Mpf 1% INJECT 11/07/19 15:42 5 ml ONETIME ONE Administration Lidocaine HCl 5 ml 11/07/19 17:35 11/07/19 17:39 Xylocaine-Mpf 1% INJECT 11/07/19 17:36 5 ml ONETIME ONE Administration Neomycin/Polymyxin/Bacitracin 2 each 11/07/19 17:24 11/07/19 17:39 Triple Antibiotic Oint TOP 11/07/19 17:25 2 each ONETIME ONE Administration Tramadol HCl 100 mg 11/07/19 17:48 Ultram PO 11/07/19 17:49 ONETIME ONE - Re-Assessments/Exams Free Text/Narrative Re-Assessment/Exam: 11/07/19 18:04 Patient given digital block for discomfort thumb/4th finger. Local infiltration of mix of Marcaine/Lidocaine utilized both for blocks and for laceration dorsal left hand and right middle finger. Once patient more comfortable, nurse was able to scrub away vast majority of grease/dirt on hands/fingers and edges of wounds. Lacerations repaired. Wound care reviewed. Tetanus updated. Precautions also reviewed. Sutures out next or Tuesday. Departure - Departure Time of Disposition: 17:57 Disposition: Home, Self-Care 01 Condition: Good Clinical Impression: Laceration of multiple sites of hand and fingers Qualifiers: Encounter type: initial encounter Laterality: unspecified laterality Qualified Code(s): S61.419A - Laceration without foreign body of unspecified hand, initial encounter - Discharge Information *PRESCRIPTION DRUG MONITORING PROGRAM REVIEWED*: Not Applicable *COPY OF PRESCRIPTION DRUG MONITORING REPORT IN PATIENT TIERRA: Not Applicable Instructions: Sutures, Kevin, or Adhesive Wound Closure, [id number], VIS, Tetanus, Diphtheria, and Pertussis (Tdap) - CDC (05/21/2014) Referrals: Stella López NP [Primary Care Provider] - Forms: ED Department Discharge Additional Instructions: Wound care as reviewed. Sutures out next or Tuesday. Follow up earlier as needed for any concerns/signs of infection. Sepsis Event Note (ED) - Focused Exam Vital Signs: Vital Signs Temp Pulse Resp BP Pulse Ox 11/07/19 15:45 36.8 C 78 20 132/64 98 - My Orders Last 24 Hours: My Active Orders 11/07/19 15:11 Hand Comp Min 3V Bi [CR] Stat 11/07/19 16:00 Vaccines to be Administered [RC] PER UNIT ROUTINE - Assessment/Plan Last 24 Hours: My Active Orders 11/07/19 15:11 Hand Comp Min 3V Bi [CR] Stat 11/07/19 16:00 Vaccines to be Administered [RC] PER UNIT ROUTINE
[2019-11-07] MEDS ORDERED: Bupivacaine 0.5% 10 ML SDV INJECT ONE (15:50)
[2019-11-07] MEDS ORDERED: Diphtheria,Pertussis(Acell),Tetanus Vaccine 0.5 ML SDV IM ONE (15:59)
[2019-11-07] MEDS ORDERED: Bacitracin/Neomycin/Polymyxin B Oint 0.9 GM U/D Packet TOP ONE (17:24)
[2019-11-07] MEDS ORDERED: traMADol 50 MG Tab PO ONE (17:48)
== END 2019-11-07 18:05 | disposition home or self-care (01) ==
LOC: LL.ED 15:09
DX: S61.412A Laceration without foreign body of left hand, initial encounter (principal); S61.011A Laceration without foreign body of right thumb without damage to nail, initial encounter; S61.210A Laceration without foreign body of right index finger without damage to nail, initial encounter; S61.212A Laceration without foreign body of right middle finger without damage to nail, initial encounter; Z23 Encounter for immunization; Z88.1 Allergy status to other antibiotic agents; Z79.899 Other long term (current) drug therapy; W31.89XA Contact with other specified machinery, initial encounter
CPT/HCPCS: 12004; 73130; 90471; 90715; 99283; A9270; J2001; J3490

== ENCOUNTER 2022-09-25 10:57 | Emergency (ER) | payer OTHER, BC | END 2022-09-25 12:25 | disposition home or self-care (01) | LOC: LL.ED 10:57 | DX: S89.91XA Unspecified injury of right lower leg, initial encounter (principal); W23.1XXA Caught, crushed, jammed, or pinched between stationary objects, initial encounter | CPT/HCPCS: 73590-RT; 99283 ==